=== PATIENT | male | born 1950 | race Caucasian/White ===

== ENCOUNTER 2018-05-23 08:03 | Outpatient (CLI) | payer OTHER, SELFPAY ==
[2018-05-23 08:29] LABS: Abs Immature Grans 0.02 k/cumm (0.0-0.09); Absolute Basophil Count 0.03 k/cumm (0.0-0.2); Absolute Eosinophil Count 0.64 k/cumm (0.0-0.7); Absolute Lymphocyte Count 2.03 k/cumm (1.2-3.4); Absolute Monocyte Count 0.76 k/cumm (0.11-0.7); Absolute Neutrophil Count 3.54 k/cumm (1.2-6.7); Basophils % 0.4; Eosinophils % 9.1; HCT 42.6 % (40.0-50.0); HGB 14.6 g/dL (13.5-17.5); Immature Grans % 0.3; Lymphocytes % 28.9; Mean Corp. HGB Concentration 34.3 g/dL (32.0-36.0); Mean Corpuscular Hemoglobin 32.7 pg (27.0-33.0); Mean Corpuscular Volume 95.5 fL (80-95); Mean Platelet Volume 9.5 fL (8.0-11.0); Monocytes % 10.8; Neutrophils % 50.5; Platelet Count 236 x1000/uL (130-400); RBC 4.46 m/cumm (4.50-6.00); RBC Distribution Width 12.5 % (11.8-14.1); White Blood Cell Count 7.02 k/cumm (4.4-10.8)
[2018-05-23 09:39] LABS: ALT 39 U/L (12-78); AST 23 U/L (15-37); Albumin 3.8 g/dL (3.4-5.0); Alkaline Phosphatase 111 U/L (46-116); Anion Gap 8.6 mmol/L (3-11); BUN 20 mg/dL (7-18); Bilirubin, Total 0.5 mg/dL (0.2-1.0); CO2 29.4 mmol/L (21.0-32.0); CREATININE 1.42 mg/dL (0.70-1.30); Calcium 9.2 mg/dL (8.5-10.1); Chloride 104 mmol/L (98-107); Estimated GFR 49.73 (mL/min/1.73m2); Glucose 96 mg/dL (70-100); Potassium 4.6 mmol/L (3.5-5.1); Sodium 142 mmol/L (136-145); Total Protein 7.2 g/dL (6.4-8.2)
== END 2018-05-23 08:23 ==
PROVIDERS: Surgery; PCP Nurse Practitioner; Visit Provider Nurse Practitioner
DX: N18.3 Chronic kidney disease, stage 3 (moderate) (principal); E03.9 Hypothyroidism, unspecified
CPT/HCPCS: 36415; 80048; 80053; 84443; 85025

== ENCOUNTER 2019-05-24 01:08 | Outpatient (CLI) | payer OTHER, SELFPAY ==
[2019-05-24 07:47] LABS: HCT 41.5 % (40.0-50.0); HGB 14.6 g/dL (13.5-17.5); Mean Corp. HGB Concentration 35.2 g/dL (32.0-36.0); Mean Corpuscular Hemoglobin 33.6 pg (27.0-33.0); Mean Corpuscular Volume 95.6 fL (80-95); Mean Platelet Volume 9.4 fL (8.0-11.0); Platelet Count 240 x1000/uL (130-400); RBC 4.34 m/cumm (4.50-6.00); RBC Distribution Width 12.3 % (11.8-14.1); White Blood Cell Count 5.71 k/cumm (4.4-10.8)
[2019-05-24 10:22] LABS: ALT 27 U/L (16-63); AST 22 U/L (15-37); Albumin 3.8 g/dL (3.4-5.0); Alkaline Phosphatase 91 U/L (46-116); Anion Gap 7.5 mmol/L (3-11); BUN 18 mg/dL (7-18); Bilirubin, Total 0.5 mg/dL (0.2-1.0); CO2 29.5 mmol/L (21.0-32.0); CREATININE 1.39 mg/dL (0.70-1.30); Calculated LDL 121 mg/dL; Chloride 105 mmol/L (98-107); Cholesterol 204 mg/dL (50-200); Estimated GFR 50.82 (mL/min/1.73m2); Glucose 101 mg/dL (70-100); HDL Cholesterol 40 mg/dL (40-60); Potassium 4.5 mmol/L (3.5-5.1); Sodium 142 mmol/L (136-145); TSH (W/Ref FT4) 0.58 uIU/mL (0.36-3.74); Total Protein 7.1 g/dL (6.4-8.2); Triglyceride 218 mg/dL (30-150)
== END 2019-05-24 01:28 ==
PROVIDERS: PCP Nurse Practitioner; Visit Provider Nurse Practitioner
DX: E03.9 Hypothyroidism, unspecified (principal); E78.5 Hyperlipidemia, unspecified; N18.3 Chronic kidney disease, stage 3 (moderate)
CPT/HCPCS: 36415; 80053; 80061; 85027; 84443

== ENCOUNTER 2020-05-28 03:00 | Outpatient (CLI) | payer OTHER, SELFPAY ==
[2020-05-28 07:30] LABS: HGB 14.9 g/dL (13.5-17.5); MCH 33.3 pg (27.0-33.0); MCHC 34.7 % (32.0-36.0); MCV 96.2 fL (80-95); MPV 9.3 fL (8.0-11.0); Platelet Count 223 10^3/uL (130-400); RBC 4.47 10^6/uL (4.36-5.78); RDW-SD 42.3 fL; WBC 7.59 10^3/uL (4.4-10.8)
[2020-05-28 08:51] LABS: ALT 25 U/L (16-63); AST 18 U/L (15-37); Albumin 3.9 g/dL (3.4-5.0); Alkaline Phosphatase 94 U/L (46-116); BUN 16 mg/dL (7-18); Bilirubin, Total 0.5 mg/dL (0.2-1.0); CREATININE 1.52 mg/dL (0.70-1.30); Calcium 9.2 mg/dL (8.5-10.1); Calculated LDL 132 mg/dL (<100); Chloride 104 mmol/L (98-107); Cholesterol 232 mg/dL (<200); Glucose 93 mg/dL (74-106); HDL Cholesterol 39 mg/dL (40-60); Potassium 4.5 mmol/L (3.5-5.1); Sodium 141 mmol/L (136-145); TSH (W/Ref FT4) 0.62 uIU/mL (0.36-3.74); Triglyceride 306 mg/dL (<150)
== END 2020-05-28 03:20 ==
PROVIDERS: Nurse Practitioner Family; PCP Nurse Practitioner; Visit Provider Nurse Practitioner
DX: E78.5 Hyperlipidemia, unspecified (principal); E03.9 Hypothyroidism, unspecified; N18.30 Chronic kidney disease, stage 3 unspecified
CPT/HCPCS: 36415; 80053; 80061; 85027; 84443

== ENCOUNTER 2020-07-30 14:46 | Outpatient (CLI) | payer OTHER, SELFPAY ==
--- NOTE | 2020-07-30 14:45 | DI.RAD_ITS ---
EXAM: XR SHOULDER RT COMPLETE 2+V CLINICAL HISTORY: Right shoulder pain. TECHNIQUE: 2D digital imaging was performed. COMPARISON: No exams were available for comparison FINDINGS: BONES: No acute fracture is present. No bony destructive lesion is seen. JOINTS: No dislocation present. Mild degenerative changes are seen at the acromioclavicular joint. SOFT TISSUE: Normal. IMPRESSION: Mild degenerative changes of the acromioclavicular joint. DATA REPOSITORY: RADIATION DOSE DELIVERED:
== END 2020-07-30 15:06 ==
PROVIDERS: PCP Nurse Practitioner; Referring Provider Nurse Practitioner; Visit Provider Student in an Organized Health Care Education/Training Program
DX: M19.011 Primary osteoarthritis, right shoulder (principal); M75.01 Adhesive capsulitis of right shoulder; M75.21 Bicipital tendinitis, right shoulder; M75.51 Bursitis of right shoulder
CPT/HCPCS: 20610; 99203; 99214; 73030; J1030

== ENCOUNTER → 2020-09-17 08:06 | Outpatient (BNVA) | payer OTHER, SELFPAY | PROVIDERS: PCP Nurse Practitioner; Referring Provider Nurse Practitioner; Visit Provider Student in an Organized Health Care Education/Training Program | DX: M25.511 Pain in right shoulder (principal); M75.51 Bursitis of right shoulder; M75.21 Bicipital tendinitis, right shoulder; M75.01 Adhesive capsulitis of right shoulder; Z98.890 Other specified postprocedural states | CPT/HCPCS: 99213; 99214 ==

== ENCOUNTER 2021-06-30 04:10 | Outpatient (CLI) | payer MEDICARE, SELFPAY ==
[2021-06-30 08:48] LABS: ALT 35 U/L (16-63); AST 18 U/L (15-37); Alkaline Phosphatase 98 U/L (46-116); Anion Gap 6.9 mmol/L (3-11); BUN 18 mg/dL (7-18); Bilirubin, Total 0.5 mg/dL (0.2-1.0); CO2 31.1 mmol/L (21.0-32.0); CREATININE 1.5 mg/dL (0.70-1.30); Calcium 9.1 mg/dL (8.5-10.1); Calculated LDL 138 mg/dL (<100); Chloride 105 mmol/L (98-107); Cholesterol 226 mg/dL (<200); Estimated GFR 46.27 (mL/min/1.73m2); Glucose 96 mg/dL (74-106); HDL Cholesterol 42 mg/dL (40-60); Potassium 4.7 mmol/L (3.5-5.1); Sodium 143 mmol/L (136-145); TSH (W/Ref FT4) 0.77 uIU/mL (0.36-3.74); Total Protein 7.2 g/dL (6.4-8.2); Triglyceride 233 mg/dL (<150)
== END 2021-06-30 04:11 | disposition home or self-care (01) ==
LOC: LBO 04:10
PROVIDERS: PCP Nurse Practitioner; Visit Provider Nurse Practitioner
DX: I10 Essential (primary) hypertension; E03.9 Hypothyroidism, unspecified; E78.5 Hyperlipidemia, unspecified; N18.30 Chronic kidney disease, stage 3 unspecified
CPT/HCPCS: 36415; 80053; 80061; 84443

== ENCOUNTER 2021-07-17 00:36 | Outpatient (CLI) | payer MEDICARE, SELFPAY ==
--- NOTE | 2021-07-17 06:15 | DI.US_ITS ---
Exam(s) US AAA SCREENING EXAM: US AAA SCREENING CLINICAL HISTORY: screening for aaa,z13.6 COMPARISON: CT ABD PELVIS WO CONTRAST from 08/30/2017 CT ABD PELVIS WO CONTRAST from 08/30/2017 US ABDOMEN ULTRASOUND (P) from 08/30/2017 US ABDOMEN ULTRASOUND (P) from 08/30/2017 FINDINGS: Abdominal Aorta: Proximal: 2.6 x 2.6 cm Mid: 2.5 x 2.2 cm Distal: 2.1 x 2.3 cm Iliac's: Right: 1.4 x 1.2 cm Left: 1.4 x 1.4 cm No significant atherosclerotic disease is seen. IMPRESSION: No evidence of abdominal aortic aneurysm. DATA REPOSITORY:
== END 2021-07-17 00:56 ==
PROVIDERS: PCP Nurse Practitioner; Visit Provider Nurse Practitioner
DX: Z13.6 Encounter for screening for cardiovascular disorders (principal)
CPT/HCPCS: 76706

== ENCOUNTER 2021-12-04 07:22 | Day surgery (SDC) | payer MEDICARE, SELFPAY ==
[2021-12-04 07:42] VITALS: BP 132/80; PULSE 62; RESP 16; TEMP 36.3; O2SAT 98
[2021-12-04] MEDS: Tropicam./Phenyleph. (1/2.5%) 5 ML BTL OS ×3 (07:51→08:01)
--- NOTE | 2021-12-04 08:39 | W.ANESPRE ---
General Info Date of Service Date Performed: 12/04/21 Height: 5 ft 8 in Weight: 81.8 kg Body Mass Index (BMI): 27.4 Surgical Procedure: Operation Date: 12/04/21 09:10 Proposed Procedure Side Surgeon p Cataract Extraction with IOL Implant Left Kyle Euceda MD Meds Allergies and Home Medications Allergies Allergy/AdvReac Type Severity Reaction Status Date / Time latex AdvReac Skin Rash Verified 12/04/21 07:48 Home Medication Medication Instructions Recorded multivitamin (Daily Vitamin) 1 ea PO DAILY 08/24/13 aspirin 81 mg tablet,delayed 81 mg PO DAILY #1 tab-cap 08/28/14 release (Aspir-) levothyroxine 112 mcg tablet 112 mcg PO DAILY #90 tab-cap 07/07/21 omega-3 fatty acids-fish oil 360 1 cap PO DAILY 11/23/21 mg-1,200 mg capsule (Fish Oil) Current Visit Medications: Current Medications Generic Name Dose Route Start Last Admin Trade Name Freq PRN Reason Stop Dose Admin Acetaminophen 1,000 mg 12/04/21 06:00 Acetaminophen 500 Mg Tab PO Q4H PRN PRN Miscellaneous Medication 0 ml 12/04/21 06:00 Prednisolone 1%, Moxifloxacin 0.5%, Nepafenac 0.1% 5ml Btl OS DIRECTED KEYA Miscellaneous Medication 0 ml 12/04/21 06:00 12/04/21 08:01 Tropicam./Phenyleph. (1/2.5%) 5 Ml Btl OS 1 drp DIRECTED KEYA Administration Tetracaine HCl 0 ml 12/04/21 06:00 Tetracaine 0.5% 4 Ml Btl OS DIRECTED KEYA PFSH Active Problems Active Problems: Problem Status Onset Code Cortical cataract of left eye H26.9 Nuclear sclerotic cataract of left eye H25.12 Bursitis of right shoulder M75.51 Tendonitis of long head of biceps brachii of right shoulder M75.21 Adhesive capsulitis of right shoulder M75.01 Family history of melanoma Z80.8 Family history of colon cancer Z80.0 Encounter for routine history and physical examination Z00.00 Right shoulder pain M25.511 Colonoscopy refused Z53.20 Routine general medical examination at a health care facility Z00.00 Posterior vitreous detachment 09/08/12 H43.819 Other and unspecified hyperlipidemia 08/17/11 E78.5 Kidney stone 08/17/11 N20.0 Hypothyroidism, unspecified 08/17/11 E03.9 Erectile dysfunction 09/03/15 N52.9 Dermatophytosis of nail 08/17/11 B35.1 Chronic kidney disease, stage 3 09/03/15 N18.3 Active advance directive within chart 08/17/11 Z78.9 Surgical History Surgical History Cholecystectomy (05/24/06) H/O colonoscopy (09/01/09) S/P appendectomy Tobacco Smoking/Tobacco Use Status: Never Passive smoking exposure: No Second hand exposure: No (father smoked pipes/cigars.) Alcohol Alcohol Intake: never Substance Use Substance use: Never Substance use type: does not use Vital Signs and Lab Results Vital Signs Most Recent Vital Signs in EMR: Most Recent Vital Signs Temp Pulse Resp BP Pulse Ox 36.3 C L 62 16 132/80 98 12/04/21 07:42 12/04/21 07:42 12/04/21 07:42 12/04/21 07:42 12/04/21 07:42 Lab Results Blood Type / Crossmatch: No Data to Display Complete Blood Count: No Data to Display Complete Metabolic Panel: No Data to Display Liver Function Panel: No Data to Display Coagulation Panel: No Data to Display Cardiac Panel: No Data to Display Arterial Blood Gas: No Data to Display Venous Blood Gas: No Data to Display Pancreas Panel: No Data to Display Thyroid Panel: No Data to Display Infectious Disease: No Data to Display Blood Cultures: No Data to Display Toxicology Panel: No Data to Display Anesthesia Assessment and Plan Anesthesia History Personal History: No History of Anesthesia Complications Family History: No Family History of Anesthesia Complications Exercise Tolerance Exercise Tolerance: Metabolic Equivalents>4 Pertinent Negatives Pertinent Negatives: No Symptoms of GERD Cardiac & Pulmonary Exam Cardiac Exam: Normal S1/S2 Heart Sounds Pulmonary Exam: Clear Bilateral Breath Sounds Implantable Cardiac Device Does patient have a Pacemaker or an ICD?: No Airway Exam Known Difficult Airway: No Mallampati Class: 3 Mouth Opening: Normal (> 3cm) Thyromental Distance: Greater than 3 cm Neck Range of Motion: Full ROM Neck Circumference: Normal Teeth Condition: Normal Dentition ASA Classification ASA Score: ASA 3 Emergency Case?: No NPO Status NPO Status: NPO Clears >2 hours, Solids >8 hours Anesthesia Plan Resuscitation Status: Full Code Anesthesia Technique: MAC Anesthesia Airway Planned: Natural Airway Monitors Used: Standard Monitors
[2021-12-04 08:40] VITALS: BMI 27.4
[2021-12-04] MEDS: Balanced Salt Soln.-PLUS 500 ML BAG (09:08)
[2021-12-04] MEDS: Duovisc Viscoelastic System EACH 1 EACH (09:09)
[2021-12-04] MEDS: Lidocaine 2% Jelly 6 ML SYR (09:10)
[2021-12-04] MEDS: Povidone-Iodine Ophth 30 ML BTL (09:10)
[2021-12-04] MEDS: Tetracaine 0.5% 4 ML BTL OS (09:12)
[2021-12-04] MEDS: Triamcinolone 40 MG/ML VIAL (09:19)
[2021-12-04 09:40] VITALS: BP 145/82; PULSE 60; RESP 18; TEMP 36.5; O2SAT 99
--- NOTE | 2021-12-04 09:40 | W.PM.DSUDISC ---
Discharge Plan Disposition Patient Disposition: HOME Condition: Good Discharge Details Attending Provider: Kyle Euceda Primary Care Provider: Nataliia Jimenez Home Meds and New Rx's Prescriptions: No Action levothyroxine 112 mcg tablet 112 mcg PO DAILY Qty: 90 3RF omega-3 fatty acids-fish oil [Fish Oil] 360-1,200 mg capsule 1 cap PO DAILY 0RF multivitamin [Daily Vitamin] 1 EACH tablet 1 ea PO DAILY 0RF aspirin [Aspir-81] 81 MG tablet,delayed release (DR/EC) 81 mg PO DAILY Qty: 1 11RF Discharge Instructions Stand Alone Forms: Post-op Topical Cataract, [place] (DSU) Discharge Orders Discharge Orders: Discharge Order (Routine); Ordered 12/04/21 Ordered By: Kyle Euceda DS: Diagnosis Discharge Diagnosis (1) Cortical cataract of left eye: Status: Resolved (2) Nuclear sclerotic cataract of left eye: Status: Resolved
--- NOTE | 2021-12-04 09:41 | ROE_ITS ---
Date of service: 12/04/21 Time of Service: 09:41 Operative Note Operative Note DATE OF PROCEDURE: 12/04/21 PRE-OP DIAGNOSIS: Nuclear/cortical cataract, left eye POST-OP DIAGNOSIS: same PROCEDURE: Cataract extraction using phacoemulsification with intraocular lens implant, left eye SURGEON: Kyle Euceda ANESTHESIA TYPE: Local By Surgeon and MAC Refer to Anesthesia Record PATHOLOGY: none sent COMPLICATIONS: None Patient was transported to: same day Patient's condition: stable Implants: Sanjeev and Sanjeev / [employer] Tecnis [id number] Indications: Progressive decreased vision due to cataract, left eye Procedure Description: CATARACT SURGERY OPERATIVE REPORT PREOPERATIVE DIAGNOSIS: 1. Nuclear/cortical cataract, POSTOPERATIVE DIAGNOSIS: Same OPERATION: 1. Cataract extraction using phacoemulsification with posterior chamber intraocular lens implant, left eye. IOL: IOL Bread Pan Greaser/Model: Sanjeev & Sanjeev / LEANDER Tecnis [id number] IOL Power: + 17 point diopters IOL Serial Number: [id number] Optic Diameter: 6.0 mm Haptic/Overall Diameter: 13.0 mm PHACO INFO: Juan [employer] Vision System with OZil and Active Fluidics Cumulative Dispersed Energy (CDE): 6.9 seconds SURGEON: Kyle Euceda MD, DOROTHEA ANESTHESIA: Monitored A [facility] (MAC), with local sub-tenon's anesthetic infiltration COMPLICATIONS: None SPECIMENS: None INDICATIONS FOR PROCEDURE: The patient is a 71-year-old gentleman with history of diminished visual acuity in his left eye secondary to the development of nuclear and cortical cataract. He is significantly symptomatic that he desires cataract surgery and attempt to improve and maximize his PROCEDURE: The correct surgical eye was identified and marked as the left eye and the pupil was dilated in the preoperative area using mydriatics and cyclople gics. The dilated pupil size was seven-point mm. He elected to proceed without oral sedationthe patient was brought to the operating room where cardiopulmonary monitoring was instituted and surgical time-out was performed, confirming the correct operative eye and IOL power. Topical anesthesia was administered and ophthalmic povidone-iodine 5% was instilled into the conjunctival fornices. Lidocaine gel was applied to the cornea and the niranjan-ocular area was prepped with Betadine 10% solution and draped in the usual sterile fashion for intraocular surgery, including an aperture drape. A Tegaderm transparent film dressing was cut in half and used to cover the lashes and lid margins. Care was taken to sequester the lashes and lid margins under the Tegaderm dressing. A lid speculum was placed between the lids of the operative eye and the Juan A [employer] operating microscope was maneuvered into position. Cora scissors were then used to make a conjunctival buttonhole approximately 6mm posterior to the limbus in the inferonasal quadrant. Blunt dissection was carried out to expose bare sclera, and a blunt-tipped sub-tenon?s anesthesia cannula was introduced and passed posteriorly along the globe where non- preserved plain lidocaine was injected into posterior sub-Tenon?s space. A sideport knife was used to make a paracentesis port superiorly/superiortemporally. Intraocular phenylephrine/lidocaine was injected int the anterior chamber.. The anterior chamber was filled with viscoelastic. A 2.4mm keratome knife was used to create a half-thickness groove at the limbus and then to construct a three-plane near-clear corneal tunnel extending 2.0mm into clear cornea at the 3:00 position. A flap was raised on the anterior capsule and capsulorhexis forceps were used to complete a continuous curvilinear capsulorhexis of 5.0 mm. The capsule was noted to be quite thin. Balanced salt solution was then used to perform cortical cleaving hydrodissection and nuclear hydrodelineation until the lens could be freely rotated within the capsular bag. The lens nucleus was then disassembled and removed within the capsular bag and iris plane using phacoemulsification. The anterior chamber was noted to be quite deep. Residual cortical material was removed using the 45-degree angled silicone I/A tip with 0.3mm port. The posterior capsule was carefully polished to remove as much residual lens epithelial cells as safely possible. The capsular bag was then inflated and the anterior chamber deepened with viscoelastic. The lens implant described above was inserted into the capsular bag using the LEANDER [place] Injector. A Kuglen hook was used to dial the IOL into position. Residual viscoelastic was then removed first from posterior to the IOL, then from the anterior chamber using the I/A handpiece. The lens implant was noted to center nicely within the capsular bag. The incisions were stromally hydrated, and the anterior chamber was reformed using BSS. Then 0.5cc of moxifloxacin 1.0mg/ml were injected into the capsular bag and anterior chamber. The incisions were checked with a Weck spear and found to be secure. At the conclusion of the procedure, Kenalog 20 mg in 0.5 cc were injected into posterior sub-tenon's space using the sub-tenon's anesthesia injection cannula. Several drops of ophthalmic povidone-iodine 5% were then applied to the eye followed by two drops of Imprimis combination prednisolone/moxifloxacin/nepafenac solution. The drapes were removed and a clear plastic protective eye shield was placed over the eye. The patient was then returned to Same Day Surgery in stable condition.
--- NOTE | 2021-12-04 10:00 | W.ANESPOSTOP ---
Postoperative Evaluation Date, Time and Location Date Performed: 12/04/21 Time Performed: 09:45 Patient Location: Day Surgery Unit Vital Signs Most Recent Imported Vital Signs: Most Recent Vital Signs Temp Pulse Resp BP Pulse Ox 36.5 C 60 18 145/82 H 99 12/04/21 09:40 12/04/21 09:40 12/04/21 09:40 12/04/21 09:40 12/04/21 09:40 Pain Score Most Recent Pain Score: Most Recent Pain Score Pain Level 0 12/04/21 09:40 Assessment Mental Status: Awake (Alert & Oriented to Patient Baseline) Airway and Respiratory Function: Patent airway with normal (patient baseline) respiratory exam Cardiovascular Function: Hemodynamically Stable Hydration Status: Adequately Hydrated Nausea & Vomiting: No Nausea or Vomiting Pain: Pt. Denies Any Pain Peripheral Nerve Block: Patient did not receive a nerve block
== END 2021-12-04 10:03 | disposition home or self-care (01) ==
PROVIDERS: PCP Nurse Practitioner; Visit Provider Ophthalmology
PROC: (CPT 66984; principal; 2021-12-04 09:00)
DX: H25.12 Age-related nuclear cataract, left eye (principal); E03.9 Hypothyroidism, unspecified; N18.30 Chronic kidney disease, stage 3 unspecified
CPT/HCPCS: 66984; V2632

== ENCOUNTER 2021-12-18 06:24 | Day surgery (SDC) | payer MEDICARE, SELFPAY ==
--- NOTE | 2021-12-18 06:14 | ANES.PREOP_ITS ---
General Info Date of Service Date Performed: 12/18/21 Height: 5 ft 8 in Weight: 80 kg Body Mass Index (BMI): 26.8 Surgical Procedure: Operation Date: 12/18/21 07:40 Proposed Procedure Side Surgeon p Cataract Extraction with IOL Implant Right Kyle Euceda MD Meds Allergies and Home Medications Allergies Allergy/AdvReac Type Severity Reaction Status Date / Time latex AdvReac Skin Rash Verified 12/18/21 06:16 Home Medication Medication Instructions Recorded multivitamin (Daily Vitamin tablet) 1 ea PO DAILY 08/24/13 aspirin 81 mg tablet,delayed 81 mg PO DAILY #1 tab-cap 08/28/14 release (Aspir-) levothyroxine 112 mcg tablet 112 mcg PO DAILY #90 tab-caps 07/07/21 omega-3 fatty acids-fish oil 360 1 cap PO DAILY 11/23/21 mg-1,200 mg capsule (Fish Oil) PFSH Active Problems Active Problems: Problem Status Onset Code Cortical cataract of left eye H26.9 Nuclear sclerotic cataract of left eye H25.12 Bursitis of right shoulder M75.51 Tendonitis of long head of biceps brachii of right shoulder M75.21 Adhesive capsulitis of right shoulder M75.01 Family history of melanoma Z80.8 Family history of colon cancer Z80.0 Encounter for routine history and physical examination Z00.00 Right shoulder pain M25.511 Colonoscopy refused Z53.20 Routine general medical examination at a health care facility Z00.00 Posterior vitreous detachment 09/08/12 H43.819 Other and unspecified hyperlipidemia 08/17/11 E78.5 Kidney stone 08/17/11 N20.0 Hypothyroidism, unspecified 08/17/11 E03.9 Erectile dysfunction 09/03/15 N52.9 Dermatophytosis of nail 08/17/11 B35.1 Chronic kidney disease, stage 3 09/03/15 N18.3 Active advance directive within chart 08/17/11 Z78.9 Surgical History Surgical History Cholecystectomy (05/24/06) H/O colonoscopy (09/01/09) S/P appendectomy Tobacco Smoking/Tobacco Use Status: Never Passive smoking exposure: No Second hand exposure: No (father smoked pipes/cigars.) Alcohol Alcohol Intake: never Substance Use Substance use: Never Substance use type: does not use Vital Signs and Lab Results Vital Signs Most Recent Vital Signs in EMR: Temp Pulse Resp BP Pulse Ox 36.3 C L 50 L 18 127/75 99 12/18/21 06:30 12/18/21 06:30 12/18/21 06:30 12/18/21 06:30 12/18/21 06:30 Lab Results Blood Type / Crossmatch: No Data to Display Complete Blood Count: No Data to Display Complete Metabolic Panel: No Data to Display Liver Function Panel: No Data to Display Coagulation Panel: No Data to Display Cardiac Panel: No Data to Display Arterial Blood Gas: No Data to Display Venous Blood Gas: No Data to Display Pancreas Panel: No Data to Display Thyroid Panel: No Data to Display Infectious Disease: No Data to Display Blood Cultures: No Data to Display Toxicology Panel: 2 No Data to Display Anesthesia Assessment and Plan Anesthesia History Personal History: No History of Anesthesia Complications Family History: No Family History of Anesthesia Complications Exercise Tolerance Exercise Tolerance: Metabolic Equivalents>4 Cardiac & Pulmonary Exam Cardiac Exam: Normal S1/S2 Heart Sounds Pulmonary Exam: Clear Bilateral Breath Sounds Implantable Cardiac Device Does patient have a Pacemaker or an ICD?: No Airway Exam Known Difficult Airway: No Mallampati Class: 3 Mouth Opening: Normal (> 3cm) Thyromental Distance: Greater than 3 cm Neck Range of Motion: Full ROM Neck Circumference: Normal Teeth Condition: Normal Dentition ASA Classification ASA Score: ASA 3 Emergency Case?: No NPO Status NPO Status: NPO Clears >2 hours, Solids >8 hours Anesthesia Plan Resuscitation Status: Full Code Anesthesia Technique: MAC Anesthesia Airway Planned: Natural Airway Monitors Used: Standard Monitors Preoperative Comments:: 71 yo male for cataract removal. Sig PMHx: hypothyroid (on replacement), CKDIII, never smoker. Previous cataract without MKO. would like one this time. Denies health history change.
[2021-12-18 06:30] VITALS: BP 127/75; PULSE 50; RESP 18; TEMP 36.3; O2SAT 99
[2021-12-18] MEDS: Tropicam./Phenyleph. (1/2.5%) 5 ML BTL ×3 (06:37→06:47)
[2021-12-18 06:57] VITALS: BMI 26.8
[2021-12-18] MEDS: Lidocaine 2% Jelly 6 ML SYR (07:23)
[2021-12-18] MEDS: Povidone-Iodine Ophth 30 ML BTL (07:23)
[2021-12-18] MEDS: Tetracaine 0.5% 4 ML BTL (07:23)
[2021-12-18] MEDS: Triamcinolone 40 MG/ML VIAL (07:33)
[2021-12-18] MEDS: Balanced Salt Soln.-PLUS 500 ML BAG (07:33)
[2021-12-18] MEDS: Duovisc Viscoelastic System EACH 1 EACH (07:34)
--- NOTE | 2021-12-18 07:49 | W.PM.DSUDISC ---
Discharge Plan Disposition Patient Disposition: HOME Condition: Good Discharge Details Attending Provider: Kyle Euceda Primary Care Provider: Nataliia Jimenez Home Meds and New Rx's Prescriptions: No Action levothyroxine 112 mcg tablet 112 mcg PO DAILY Qty: 90 3RF omega-3 fatty acids-fish oil [Fish Oil] 360-1,200 mg capsule 1 cap PO DAILY multivitamin [Daily Vitamin] 1 EACH tablet 1 ea PO DAILY aspirin [Aspir-81] 81 MG tablet,delayed release (DR/EC) 81 mg PO DAILY Qty: 1 Discharge Instructions Stand Alone Forms: Post-op Topical Cataract, [place] (DSU) Discharge Orders Discharge Orders: Discharge Order (Routine); Ordered 12/18/21 Ordered By: Kyle Euceda DS: Diagnosis Discharge Diagnosis (1) Cortical cataract of right eye: Status: Resolved (2) Nuclear sclerotic cataract of right eye: Status: Resolved (3) Puckering of macula, right eye: Status: Chronic
--- NOTE | 2021-12-18 07:51 | W.PM.OP ---
Date of service: 12/18/21 Time of Service: 06:51 Operative Note Operative Note DATE OF PROCEDURE: 02/23/21 PRE-OP DIAGNOSIS: Nuclear/cortical cataract, right eye POST-OP DIAGNOSIS: same PROCEDURE: Cataract extraction using phacoemulsification with intraocular lens implant, right eye SURGEON: Kyle Euceda ANESTHESIA TYPE: Local By Surgeon and MAC Refer to Anesthesia Record ESTIMATED BLOOD LOSS: 0 PATHOLOGY: none sent COMPLICATIONS: None Patient was transported to: same day Patient's condition: stable Implants: Sanjeev & Sanjeev/LEANDER Tecnis [id number] Indications: Progressive visual loss due to cataract, right eye Procedure Description: CATARACT SURGERY OPERATIVE REPORT PREOPERATIVE DIAGNOSIS: 1. Nuclear/cortical cataract, right eye POSTOPERATIVE DIAGNOSIS: Same OPERATION: 1. Cataract extraction using phacoemulsification with posterior chamber intraocular lens implant, right eye. IOL: IOL Transport Rn/Model: Sanjeev & Sanjeev / LEANDER Tecnis [id number] IOL Power: + 17.5 diopters IOL Serial Number: [id number] Optic Diameter: 6.0mm Haptic/Overall Diameter: 13.0mm PHACO INFO: Juan [employer] [place] Vision System with OZil and Active Fluidics Cumulative Dispersed Energy (CDE): 5.98 seconds SURGEON: Kyle Euceda MD, DOROTHEA ANESTHESIA: Monitored Anesthesia Care (MAC), with local sub-tenon's anesthetic infiltration COMPLICATIONS: None SPECIMENS: None INDICATIONS FOR PROCEDURE: The patient is a 71-year-old gentleman with history of diminished visual acuity in both eyes secondary to development of bilateral nuclear/cortical cataract. He has already undergone cataract surgery in the left eye. He now presents for cataract surgery in the right eye. He has a history of bilateral epiretinal membranes as well. The option of cataract surgery was offered to the patient and he wished to proceed. PROCEDURE: The correct surgical eye was identified and marked as the right eye and the pupil was dilated in the preoperative area using mydriatics and cycloplegics. The dilated pupil size was 7.0 mm. Oral sedation was administered in the form of an Imprimis MKO Melt (midazolam 3mg/ketamine 25mg/ondansetron 2mg). The patient was brought to the operating room where cardiopulmonary monitoring was instituted and surgical time-out was performed, confirming the correct operative eye and IOL power. Topical anesthesia was administered and ophthalmic povidone-iodine 5% was instilled into the conjunctival fornices. Lidocaine gel was applied to the cornea and the niranjan-ocular area was prepped with Betadine 10% solution and draped in the usual sterile fashion for intraocular surgery, including an aperture drape. A Tegaderm transparent film dressing was cut in half and used to cover the lashes and lid margins. Care was taken to sequester the lashes and lid margins under the Tegaderm dressing. A lid speculum was placed between the lids of the operative eye and the Juan A [employer] operating microscope was maneuvered into position. Cora scissors were then used to make a conjunctival buttonhole approximately 6mm posterior to the limbus in the inferonasal quadrant. Blunt dissection was carried out to expose bare sclera, and a blunt-tipped sub-tenon?s anesthesia cannula was introduced and passed posteriorly along the globe where non-preserved plain lidocaine was injected into posterior sub-Tenon?s space. A sideport knife was used to make a paracentesis port inferotemporally. Intraocular phenylephrine/lidocaine was injected into the anterior chamber. The anterior chamber was filled with viscoelastic. A 2.4mm keratome knife was used to construct a 2-plane near-clear corneal tunnel extending 2.0mm into clear cornea superiortemporally. A flap was raised on the anterior capsule and capsulorhexis forceps were used to complete a continuous curvilinear capsulorhexis of 5.0 mm. Balanced salt solution was then used to perform cortical cleaving hydrodissection and nuclear hydrodelineation until the lens could be freely rotated within the capsular bag. The lens nucleus was then disassembled and removed within the capsular bag and iris plane using phacoemulsification. Residual cortical material was removed using the I/A handpiece. The posterior capsule was carefully polished to remove as much residual lens epithelial cells as safely possible. The capsular bag was then inflated and the anterior chamber deepened with viscoelastic. The lens implant described above was inserted into the capsular bag using the LEANDER [place] Injector. A Kuglen hook was used to dial the IOL into position. Residual viscoelastic was then removed first from posterior to the IOL, then from the anterior chamber using the I/A handpiece. The lens implant was noted to center nicely within the capsular bag. The incisions were stromally hydrated, and the anterior chamber was reformed using BSS. Then 0.5cc of moxifloxacin 1.0mg/ml were injected into the capsular bag and anterior chamber. The incisions were checked with a Weck spear and found to be secure. At the conclusion of the procedure, Kenalog 20 mg in 0.5 cc were injected into posterior sub-tenon's space using the sub-tenon's anesthesia injection cannula. Several drops of ophthalmic povidone-iodine 5% were then applied to the eye followed by two drops of Imprimis combination prednisolone/moxifloxacin/nepafenac solution. The drapes were removed and a clear plastic protective eye shield was placed over the eye. The patient was then returned to Same Day Surgery in stable condition.
[2021-12-18 07:55] VITALS: BP 114/66; PULSE 56; RESP 16; TEMP 36.7; O2SAT 97
--- NOTE | 2021-12-18 08:01 | W.ANESPOSTOP ---
Postoperative Evaluation Date, Time and Location Date Performed: 12/18/21 Time Performed: 07:02 Patient Location: Day Surgery Unit Vital Signs Most Recent Imported Vital Signs: Most Recent Vital Signs Temp Pulse Resp BP Pulse Ox 36.7 C 56 L 16 114/66 97 12/18/21 07:55 12/18/21 07:55 12/18/21 07:55 12/18/21 07:55 12/18/21 07:55 Pain Score Most Recent Pain Score: Most Recent Pain Score Pain Level 0 12/18/21 07:55 Assessment Mental Status: Awake (Alert & Oriented to Patient Baseline) Airway and Respiratory Function: Patent airway with normal (patient baseline) respiratory exam Cardiovascular Function: Hemodynamically Stable Hydration Status: Adequately Hydrated Nausea & Vomiting: No Nausea or Vomiting Pain: Pt. Denies Any Pain Peripheral Nerve Block: Patient did not receive a nerve block
[2021-12-18 08:15] VITALS: BP 121/77; PULSE 56; RESP 16; TEMP 37; O2SAT 96
== END 2021-12-18 08:18 | disposition home or self-care (01) ==
PROVIDERS: PCP Nurse Practitioner; Visit Provider Ophthalmology
PROC: (CPT 66984; principal; 2021-12-18 07:30)
DX: H25.11 Age-related nuclear cataract, right eye (principal); H35.371 Puckering of macula, right eye; E03.9 Hypothyroidism, unspecified
CPT/HCPCS: 66984; V2632

== ENCOUNTER 2022-07-05 02:54 | Outpatient (CLI) | payer MEDICARE, SELFPAY ==
[2022-07-05 07:32] LABS: HCT 41.7 % (40.0-50.0); HGB 14.5 g/dL (13.5-17.5); MCHC 34.8 % (32.0-36.0); MCV 95 fL (80-95); MPV 9.3 fL (8.0-11.0); Platelet Count 242 10^3/uL (130-400); RBC 4.39 10^6/uL (4.36-5.78); RDW 12.1 % (11.8-14.1); RDW-SD 42.3 fL; WBC 7.67 10^3/uL (4.4-10.8)
[2022-07-05 07:56] LABS: ALT 28 U/L (16-63); AST 18 U/L (15-37); Albumin 3.8 g/dL (3.4-5.0); Alkaline Phosphatase 110 U/L (46-116); Anion Gap 5.4 mmol/L (3-11); BUN 22 mg/dL (7-18); Bilirubin, Total 0.4 mg/dL (0.2-1.0); CO2 30.6 mmol/L (21.0-32.0); CREATININE 1.5 mg/dL (0.70-1.30); Calcium 9.3 mg/dL (8.5-10.1); Calculated LDL 109 mg/dL (<100); Chloride 103 mmol/L (98-107); Cholesterol 200 mg/dL (<200); Estimated GFR 49.47 (mL/min/1.73m2); Glucose 99 mg/dL (74-106); HDL Cholesterol 44 mg/dL (40-60); Potassium 4.3 mmol/L (3.5-5.1); Sodium 139 mmol/L (136-145); TSH (W/Ref FT4) 0.22 uIU/mL (0.36-3.74); Total Protein 7.6 g/dL (6.4-8.2); Triglyceride 236 mg/dL (<150)
[2022-07-05 08:13] LABS: FREE T4 1.07 ng/dL (0.76-1.46)
== END 2022-07-05 02:55 | disposition home or self-care (01) ==
LOC: LBO 02:54
PROVIDERS: PCP Nurse Practitioner; Referring Provider Nurse Practitioner; Visit Provider Nurse Practitioner
DX: I10 Essential (primary) hypertension (principal); E78.5 Hyperlipidemia, unspecified; E03.9 Hypothyroidism, unspecified
CPT/HCPCS: 36415; 80053; 80061; 85027; 84439; 84443

== ENCOUNTER 2023-07-06 09:56 | Outpatient (CLI) | payer MEDICARE, SELFPAY ==
[2023-07-06 08:38] LABS: ALT 32 U/L (16-63); AST 17 U/L (15-37); Albumin 3.7 g/dL (3.4-5.0); Alkaline Phosphatase 92 U/L (46-116); Anion Gap 6.8 mmol/L (3-11); BUN 24 mg/dL (7-18); Bilirubin, Total 0.5 mg/dL (0.2-1.0); CO2 30.2 mmol/L (21.0-32.0); CREATININE 1.5 mg/dL (0.70-1.30); Calcium 9.4 mg/dL (8.5-10.1); Calculated LDL 123 mg/dL (<100); Chloride 105 mmol/L (98-107); Cholesterol 219 mg/dL (<200); Estimated GFR 49.16 (mL/min/1.73m2); Glucose 98 mg/dL (74-106); HDL Cholesterol 46 mg/dL (40-60); Potassium 4.4 mmol/L (3.5-5.1); Sodium 142 mmol/L (136-145); Total Protein 7.5 g/dL (6.4-8.2); Triglyceride 252 mg/dL (<150)
[2023-07-06 08:55] LABS: FREE T4 0.88 ng/dL (0.76-1.46)
[2023-07-06 18:44] LABS: PSA, Screening 0.7 ng/mL (<=6.5)
== END 2023-07-06 09:57 | disposition home or self-care (01) ==
LOC: LBO 09:57
PROVIDERS: Family Medicine; PCP Nurse Practitioner; Visit Provider Nurse Practitioner
DX: Z12.5 Encounter for screening for malignant neoplasm of prostate (principal); E03.9 Hypothyroidism, unspecified; E78.5 Hyperlipidemia, unspecified; N18.30 Chronic kidney disease, stage 3 unspecified
CPT/HCPCS: 36415; 80053; 80061; 84153; 84439; 84443

== ENCOUNTER → 2023-11-23 02:46 | Outpatient (CLI) | payer MEDICARE, SELFPAY ==
--- NOTE | 2023-11-23 10:00 | DI.RAD_ITS ---
Exam(s) XR THUMB RT EXAM: XR THUMB RT CLINICAL HISTORY: ? avulsion Fx, UCL injury,rt thumb pain,m79.644,sprain,s63.641a,numbness rt. TECHNIQUE: 2D digital imaging was performed. Three views. COMPARISON: No exams were available for comparison FINDINGS: BONES: No acute fracture is present. No bony destructive lesion is seen. JOINTS: No dislocation or subluxation present. Joint spaces are maintained. SOFT TISSUE: Normal. IMPRESSION: No evidence of acute fracture, dislocation, or subluxation. DATA REPOSITORY: RADIATION DOSE DELIVERED:
== END ==
PROVIDERS: PCP Nurse Practitioner; Visit Provider Student in an Organized Health Care Education/Training Program
DX: M79.644 Pain in right finger(s) (principal); M25.531 Pain in right wrist; R20.0 Anesthesia of skin; R20.2 Paresthesia of skin
CPT/HCPCS: 73140

== ENCOUNTER → 2023-11-24 08:40 | Outpatient (BNVA) | payer MEDICARE, SELFPAY | PROVIDERS: PCP Nurse Practitioner; Referring Provider Nurse Practitioner; Visit Provider Student in an Organized Health Care Education/Training Program | DX: M77.8 Other enthesopathies, not elsewhere classified (principal); G56.01 Carpal tunnel syndrome, right upper limb | CPT/HCPCS: 99202 ==

== ENCOUNTER 2024-08-14 03:25 | Outpatient (CLI) | payer MEDICARE, SELFPAY ==
[2024-08-14 07:41] LABS: ALT 26 U/L (16-63); AST 15 U/L (15-37); Albumin 3.9 g/dL (3.4-5.0); Alkaline Phosphatase 97 U/L (46-116); Anion Gap 7.7 mmol/L (3-11); BUN 22 mg/dL (7-18); CO2 29.3 mmol/L (21.0-32.0); CREATININE 1.8 mg/dL (0.70-1.30); Calculated LDL 136 mg/dL (<100); Chloride 107 mmol/L (98-107); Cholesterol 226 mg/dL (<200); Estimated GFR 39.25 (mL/min/1.73m2); Glucose 104 mg/dL (74-106); HDL Cholesterol 48 mg/dL (40-60); Potassium 4.4 mmol/L (3.5-5.1); Sodium 144 mmol/L (136-145); TSH (W/Ref FT4) 1.63 uIU/mL (0.36-3.74); Total Protein 7.5 g/dL (6.4-8.2); Triglyceride 214 mg/dL (<150)
== END 2024-08-14 03:26 | disposition home or self-care (01) ==
PROVIDERS: PCP Nurse Practitioner; Referring Provider Nurse Practitioner; Visit Provider Nurse Practitioner
DX: E78.5 Hyperlipidemia, unspecified (principal); E03.9 Hypothyroidism, unspecified
CPT/HCPCS: 36415; 80053; 80061; 84443

== ENCOUNTER 2024-09-11 01:07 | Outpatient (CLI) | payer MEDICARE, SELFPAY ==
--- OUTSIDE RECORDS SUMMARY | 2024-09-11 01:20 | XMS_ITS | Encounter Summary ---
Author Organization Formerly [facility] [place] [address] Care Team Providers Care Analysis Engineer Name Role Phone Andrew Sims MD Primary Care Provider U antoine Reason for Visit * Reason Onset Date Comments Results 01/07/2012 Encounter Details Date Type Department Care Team (Late st Contact Info) Description 01/07/2012 Telephone [place] [id number] Efren Stanton MD Results Social History Tobacco Use Types Packs/Day Years Used Date Smoking Tobacco: Former Cigarettes 0.5 3 0 11/22/1969 - 11/22/1972 Smokeless Tobacco: Never Alcohol Use Standard Drinks/Week Comments No 0 (1 standard drink = 0.6 oz pur e alcohol) very rare Sex and Gender Information Value Date Recorded Sex Assigned at Not on file Gender Identity Not on file Sexual Orientation Not on file documented as of this encounter Miscellaneous Notes * Telephone Encounter - Efren Stanton MD - 01/07/2012 3:33 PM EDT I called the patient to review the results of recent 24 hour urine from [facility] (collected 12/22/11). I also reviewed the interim history since I had last seen him. He says he feels much better since the procedure performed by Dr. Mcgill. The analysis of stone removed was calcium oxalate. Urine results (to be scanned into eDH) show volume 2.9 liter (much improved). Urine pH was 6.64 and oxalate 42mg. The latter two are increased from the previous collections. We identified nuts as possibly contributing to the increase in oxalate. I asked him to reduce intake of oxalate containing foods, whichwe reviewed. I asked him to continue with high water/fluid intake. documented in this encounter Plan of Treatment Not on file documented as of this encounter Visit Diagnoses Not on filedocumented in this encounter Care Teams Analysis Engineer Relationship Specialty Start Date End Date Andrew Sims MD PCP - General 06/30/10 05/17/17 documented as of this encounter
--- OUTSIDE RECORDS SUMMARY | 2024-09-11 01:20 | XMS_ITS | Encounter Summary ---
Author Organization [facility] Address [address] [place] [address] Care Team Providers Care Telecommunications Specialist Name Role Phone Unknown, Provider Primary Care Provider Unava ilable Encounter Details Date Type Department Care Team (Late st Contact Info) Description 08/31/2017 Results Only [facility] [phone] Murphy Rosales, DO [address] [place] [address] Social History Tobacco Use Types Packs/Day Years Used Date Smoking Tobacco: Never Assessed Sex and Gender Information Value Date Recorded Sex Assigned at Not on file Legal Sex Male 20:52 EST Gender Identity Not on file Sexual Orientation Not on file documented as of this encounter Plan of Treatment Not on file documented as of this encounter Procedures Procedure Name Priority Date/Time Associated Diagnosis Comments SURGICAL PATHOLOGY Routine 08/31/2017 20 :54 EST documented in this encounter Results * SURGICAL PATHOLOGY (08/31/2017 20:54 EST) Pathology Report: SURGICAL PATHOLOGY REPORT Reports generated via electronic interface contain original data; however they are lacking the format of the original report. Caution should be taken when reading/interpret ing unformatted reports. Name: ? JENARO FLORES ? Accession #: ? [id number] ? : ? 1950 (Age: 67) ??M ? Collect Date: ? 08/31/2017 ? Location: ? [facility] ? Receive Date: ? 08/31/2017 ? Provider: MURPHY ROSALES DO Copy to: [employer] ? Final Pathologic Diagnosis: GALLBLADDER, CHOLECYSTECTOMY: - ??Acute cholecystitis. - ??Cholelithiasis. Document reviewed and electronically signed by: CYRUS CELIS MD Report ??Date: 09/02/2017 14:31 By the signature above, the attending physician certifies that he/she has personally conducted a gross and/or microscopic examination of the described specimens and rendered or confirmed the above diagnosis. Specimen(s) Received: Gallbladder Clinical History: Acute cholecystitis Gross Description: ? Received in formalin labelled with proper patient identification (initials L, D) and gallbladder is a previously disrupted gallbladder (7.5 x 3.4 x 0.6 cm). The cystic duct margin is inked black. ? The mucosa is dasilva-purple, hemorrhagic, and ragged, with a laceration at the cystic duct lumen exposing the underlying mucosa. The mucosa is purple-brown and ragged, with the wall thickness ranging from 0.2-0.5 cm. Within the container is a single green ovoid granular gallstone (1.3 x 1.2 cm). The cystic duct margin, en face, and two cross sections are submitted in 1. LEEANNA Langley (ASCP) 09/01/2017 8:16 AM End of Report [facility] 08/31/2017 20:5 4 EST 08/31/2017 20:54 EST us Murphy Rosales DO PATHOLOGY ORDERABLES Final Res ult [facility] [address] [place] [address] documented in this encounter Visit Diagnoses Not on filedocumented in this encounter Care Teams Telecommunications Specialist Relationship Specialty Start Date End Date Unknown, Provider, PCP - General 08/31/17 documented as of this encounter
--- OUTSIDE RECORDS SUMMARY | 2024-09-11 01:20 | XMS_ITS | Clinical Summary ---
Author Organization [facility] Address [facility] [place] [address] Care Team Providers Care Esl Professor Name Role Phone Unknown Primary Care Provider Unavailabl e Allergies No known active allergies Medications Medication Sig Dispensed Refills Start Date End Date Status levothyroxine (SYNTHROID) 100 mcg tabletIndications:CKD (chronic kidney disease) Take 100 mcg by mouth daily. Active multivitamin (THERAGRAN) tabletIndications:CKD (chronic kidney disease) Take 1 tablet by mouth daily. Active OXYcodone-acetaminoph en (PERCOCET) 5-325 mg per tablet Take 1 tablet by mouth every 4 hours as needed for Pain. 30 tablet 0 12/03/2011 Active Active Problems Problem Noted Date Diagnosed Date Bladder stone 11/23/2011 Nephrolithiasis 11/17/2011 Social History Tobacco Use Types Packs/Day Years Used Date Smoking Tobacco: Former Cigarettes 0.5 3 0 11/22/1969 - 11/22/1972 Smokeless Tobacco: Never Alcohol Use Standard Drinks/Week Comments No 0 (1 standard drink = 0.6 oz pur e alcohol) very rare Sex and Gender Information Value Date Recorded Sex Assigned at Not on file Gender Identity Not on file Sexual Orientation Not on file Last Filed Vital Signs Vital Sign Reading Time Taken Comments Blood Pressure 135/74 01/04/2012 3:58 PM EDT Pulse 58 01/04/2012 3:58 PM EDT Temperature 36.5 ??C (97.7 ??F) 12/03/2011 1:54 PM ED T Respiratory Rate 16 01/04/2012 3:58 PM EDT Oxygen Saturation 98% 12/03/2011 2:25 PM EDT Inhaled Oxygen Concentration - - Weight 79.8 kg (176 lb) 01/04/2012 3:58 PM EDT Height 172.7 cm (5' 8) 01/04/2012 3:58 PM EDT Body Mass Index 26.76 01/04/2012 3:58 PM EDT Plan of Treatment Health Maintenance Due Date Last Done Comments CT Colonography 1950 Colonoscopy 1950 Colorectal Cancer Screening 1950 FIT DNA 1950 FIT 1950 Sigmoidoscopy (10 year) with FIT yearly 1950 Sigmoidoscopy 1950 Hepatitis C Screening 1969 Lipid Screening 1969 Tetanus/Diphtheria/Pertussis Vaccines (1 - Tdap) 01/09 Pneumoccocal Vaccine: 50+ (1 of 1 - PCV) 2001 Zoster vaccine (1 of 2) 2001 Advance Directive 2006 Covid-19 Vaccine (1 - 2023-25 season) 2024 Influenza (Flu) vaccine (1 o f 1 - Influenza standard series) 04/08/2024 Care Teams Esl Professor Relationship Specialty Start Date End Date Unknown None PCP - General 05/18/17
--- OUTSIDE RECORDS SUMMARY | 2024-09-11 01:20 | XMS_ITS | Encounter Summary ---
Author Organization [facility] Address [facility] [place] [address] Care Team Providers Care Manager Of Revenue Name Role Phone Andrew Sims MD Primary Care Provider U frankyailable Reason for Visit * Reason Comments Nephrolithiasis Encounter Details Date Type Department Care Team (Latest Contact Info) Description 11/17/2011 10:30 AM EDT Office [place] [address] Xander Mcgill Jr., MD [facility] [place] [address] Nephrolithiasis (Primary Dx) Discharge Disposition: Home Social History Tobacco Use Types Packs/Day Years Used Date Smoking Tobacco: Former Sex and Gender Information Value Date Recorded Sex Assigned at Not on file Gender Identity Not on file Sexual Orientation Not on file documented as of this encounter Last Filed Vital Signs Vital Sign Reading Time Taken Comments Blood Pressure 140/84 11/17/2011 9:41 AM EDT Pulse 69 11/17/2011 9:41 AM EDT Temperature - - Respiratory Rate 18 11/17/2011 9:41 AM EDT Oxygen Saturation - - Inhaled Oxygen Concentration - - Weight 79.8 kg (176 lb) 11/17/2011 9:41 AM EDT Height 172.7 cm (5' 8) 11/17/2011 9:41 AM EDT Body Mass Index 26.76 11/17/2011 9:41 AM EDT documented in this encounter Progress Notes * Xander Mcgill Jr., MD - 11/17/2011 9:54 AM EDT Subjective: Patient ID: Jenaro Flores is a 61 y.o. male. HPI Mr Flores is a 61 yo gentleman who presents for consult regarding urolithiasis. He had his first episode in 2006. CT reportedly showed right hydronephrosis with perinephric and periureteral stranding; a 3mm calculus was seen in the right hemipelvis which most likely lies the distal right ureter. He was able to pass and retrieve the stone and took it to [facility]. He is not aware if a stone analysis was done. He was well until 05/18, when he again had an episode of severe pain. He did not go to the ED; the pain lasted about 2-3 hours before subsiding. In 06/18, again he had pain that lasted a whole afternoon. In 07/18, he experienced another episode of pain for which he took pain medication and felt better in 3-4 hours. He does not think he passed a stone on each of these three episodes. He made an appointment to see Dr. Sims after the 06/18 episode. He had blood work, revealing a serum creatinine of 1.5 mg/dl. He had a renal ultrasound that was described as showing no hydronephrosis, a tiny echogenic focus in the lright lower pole suggestive of a non-obstructing calculus and a 1.2 cm right upper pole lesion, possibly a cyst. A CT confirmed a calculus in the left lowerpole that was non-obstructing and a 13 mm cyst in the right upper pole. He is now seen by Dr Stanton. 2 weeks ago, he had a brief episode of right flank pain, 3/10 in severity, radiated anteriorly, present for a week, then resolved. He denies associated nausea, vomiting, gross hematuria, fever, or chills. Past Medical History: Hypothyroidism Nephrolithiasis Past Surgical History: Appendectomy, in his 30s Family History: No known family h/o urolithiasis. Father at age 76 of ? Cancer or heart disease. Mother is 84 years old; she had a lumpectomy for breast cancer. 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 with two children, a son and daughter. He smoked for 3-4 years when in , stopping in 1972. Review of Systems Constitutional: Negative for fever and chills. HENT: Negative for hearing loss. Eyes: Negative for visual disturbance. Respiratory: Negative for shortness of breath. Cardiovascular: Negative for chest pain and palpitations. Gastrointestinal: Negative for abdominal pain. Genitourinary: Negative for hematuria and flank pain. Musculoskeletal: Negative for back pain. Neurological: Negative for weakness and numbness. Hematological: Does not bruise/bleed easily. Objective: Physical Exam Vitals reviewed. Constitutional: He is oriented to person, place, and time. He appears well- developed and well-nourished. No distress. HENT: Head: Normocephalic and atraumatic. Eyes: No scleral icterus. Cardiovascular: Normal rate. Pulmonary/Chest: Effort normal. Abdominal: Soft. He exhibits no distension and no mass. No tenderness. He has no rebound and no guarding. Genitourinary: No CVA tenderness to percussion Neurological: He is alert and oriented to person, place, and time. Skin: Skin is warm and dry. He is not diaphoretic. Psychiatric: He has a normal mood and affect. His behavior is normal. Labs: I reviewed his 24 h urine (scanned into eD) Imaging studies: I have reviewed the available [facility] renal ultrasound report from 06/2011. This reveals no evidence of hydronephrosis and a possible small nonobstructing right renal stone, as well as a 1.2 cm right renal cyst. Assessment and Plan: Impression/Plan: Nephrolithiasis. 24 hour urine notable for low urine volume. No current renal colic symptoms, however, he would like to have updated imaging. We discussed pros and cons of the imaging strategies. I order KUB and renal u/s. He will follow up by phone; then will try to obtain his outside CT. ADDENDUM: I have reviewed his u/s which revealed a small nonobstructing 4mm left lower pole renal stone and an incidental 9mm bladder stone. I discussed these with him, and discussed mgmt options, risks,benefits, limitations for each. As the bladder stone may be symptomatic, he is considering cystoscopic treatment (cystolitholopaxy) for this. He will call me to discuss if he wishes to pursue treatment. We also discussed that bladdwe stones may be related to bladder outlet obstruction and prostatic enlargement. documented in this encounter Plan of Treatment Not on file documented as of this encounter Results * US retroperitoneal complete (11/17/2011 1:52 PM EDT) Anatomical Region Laterality Modality Abdomen Ultrasound 11/17/2011 1:52 PM EDT Narrative 11/17/2011 2:11 PM EDT ? Renal ? (Signed Final 11/17/2011 02:10 pm) Patient Info ID: ? [id number] ? : ??[birth year] (61 yrs) Name: ? JENARO FLORES ?Visit Date: 11/17/2011 01:49 pm Performed By Performed By: ?Bijal Jha RDMS Attending: ? Bert Walls MD Referred By: ? XANDER MCGILL MD Service(s) Provided URETRO - Retroperitoneal Complete - [id number] ? [id number] Indications Hx of kidney stones Right Kidney Size (cm) ?L: ??9.9 Cortical Thickness: ?Normal Cortical Echogenicity: ?? Echogenic Hydronephrosis: ?No sonographic evidence ------- Lesions ------- # ?Date ?Location ?Description ? L ? AP ? TV (cm) 1 ?11/17/11 ?Upper pole ?Simple cyst ?1.2 ?1.5 ?0.9 Left Kidney Size (cm) ?L: ??10 Cortical Thickness: ?Normal Cortical Echogenicity: ?? Normal Hydronephrosis: ?No sonographic evidence Comment: ?Multiple niranjan-pelvic cysts. 4 mm lower pole stone Urinary Bladder Pre-void (cm) ? L: ??3.8 ? AP: ??4.2 ? TV: ??5.8 Vol (ml): ?48.5 Comment: ?Partially distended, normal contour. 9 mm renal ? calculi Impression Ultrasound - ??Retroperitoneal Complete - Summary 9 mm. mobile bladder calculus possible tiny stones in both kidneys, nothing definite. Bilateral simple renal cysts, small. I ??viewed the images and agree with the above interpretation. Thank you for allowing us to participate in the care of JENARO FLORES. Please do not hesitate to call if you have any questions. ?Bert Walls MD Electronically Signed Final Report ?? 11/17/2011 02:10 pm Procedure Note Bert Walls MD - 11/17/2011 Renal (Signed Final 11/17/2011 02:10 pm) Patient Info ID: [id number] : [birth year] (61 yrs) Name: JENARO FLORES Visit Date: 11/17/2011 01:49 pm Performed By Performed By: Bijal Jha RDMS Attending: Bert Walls MD Referred By: XANDER MCGILL MD Service(s) Provided URETRO - Retroperitoneal Complete - [id number] Indications Hx of kidney stones Right Kidney Size (cm) L: 9.9 Cortical Thickness: Normal Cortical Echogenicity: Echogenic Hydronephrosis: No sonographic evidence ------- Lesions ------- # Date Location Description L AP TV (cm) 1 11/17/11 Upper pole Simple cyst 1.2 1.5 0.9 Left Kidney Size (cm) L: 10 Cortical Thickness: Normal Cortical Echogenicity: Normal Hydronephrosis: No sonographic evidence Comment: Multiple niranjan-pelvic cysts. 4 mm lower pole stone Urinary Bladder Pre-void (cm) L: 3.8 AP: 4.2 TV: 5.8 Vol (ml): 48.5 Comment: Partially distended, normal contour. 9 mm renal calculi Impression Ultrasound - Retroperitoneal Complete - Summary 9 mm. mobile bladder calculus possible tiny stones in both kidneys, nothing definite. Bilateral simple renal cysts, small. I viewed the images and agree with the above interpretation. Thank you for allowing us to participate in the care of JENARO FLORES. Please do not hesitate to call if you have any questions. Bert Walls MD Electronically Signed Final Report 11/17/2011 02:10 pm Xander Mcgill Jr., MD IMG US GEN ORDERAB LES * XR abdomen 1 view (11/17/2011 11:10 AM EDT) Anatomical Region Laterality Modality Abdomen N/A Radiographic Reena ging 11/17/2011 11:1 0 AM EDT Impressions 11/22/2011 3:46 PM EDT IMPRESSION: Intravesicular calculus identified. ??No other urinary calculi are seen (please also refer to ultrasound from the same day). ?? Film and interpretation reviewed by the attending Narrative 11/22/2011 3:46 PM EDT AP VIEW OF THE ABDOMEN: HISTORY: ??Evaluation for kidney stones. COMPARISON: ??Compared to ultrasound from 11/17/11. FINDINGS: ??No calcific densities are seen in the region of the renal fossa or along the expected course of the ureters. ??Calcification is seen projecting over the urinary bladder, and likely corresponds with intravesicular calculus seen on comparison ultrasound. ??Stool is present in the ascending colon and stool and air reach the level of the rectum. ??An additional round 1.5 cm calcific density is present in the right upper quadrant, not in the region of the renal fossa, and may represent a gallstone. ?? The skeletal structures appear osteopenic. Procedure Note Elsy Ugrate MD - 11/22/2011 AP VIEW OF THE ABDOMEN: HISTORY: Evaluation for kidney stones. COMPARISON: Compared to ultrasound from 11/17/11. FINDINGS: No calcific densities are seen in the region of the renal fossaor along the expected course of the ureters. Calcification is seenprojecting over the urinary bladder, and likely corresponds with intravesicularcalculus seen on comparison ultrasound. Stool is present in the ascending colonand stool and air reach the level of the rectum. An additional round 1.5 cm calcific density is present in the right upper quadrant, not in the regionof the renal fossa, and may represent a gallstone. The skeletal structures appear osteopenic. IMPRESSION IMPRESSION: Intravesicular calculus identified. No other urinary calculi are seen(please also refer to ultrasound from the same day). Film and interpretation reviewed by the attending Xander Mcgill Jr., MD IMG DX ORDERABLES documented in this encounter Visit Diagnoses Diagnosis Nephrolithiasis- Primary Calculus of kidney Nephrolithiasis Calculus of kidney Nephrolithiasis Calculus of kidney documented in this encounter Care Teams Manager Of Revenue Relationship Specialty Start Date End Date Andrew Sims MD PCP - General 06/30/10 05/17/17 documented as of this encounter
--- OUTSIDE RECORDS SUMMARY | 2024-09-11 01:20 | XMS_ITS | Encounter Summary ---
Author Organization [facility] [place] [address] Care Team Providers Care Section Chief Name Role Phone Andrew Zarate MD Primary Care Provider U frankyailable Reason for Visit * Reason Comments Chronic Kidney Disease Encounter Details Date Type Department Care Team (Latest Contact Info) Description 09/24/2011 9:05 AM EST Office Visit [place] [address] Efren Stanton MD CKD (chronic kidney disease) (Primary Dx) Discharge Disposition: Home Social History Tobacco Use Types Packs/Day Years Used Date Smoking Tobacco: Former Sex and Gender Information Value Date Recorded Sex Assigned at Not on file Gender Identity Not on file Sexual Orientation Not on file documented as of this encounter Last Filed Vital Signs Vital Sign Reading Time Taken Comments Blood Pressure 144/87 09/24/2011 9:14 AM EST Pulse 74 09/24/2011 9:14 AM EST Temperature - - Respiratory Rate - - Oxygen Saturation - - Inhaled Oxygen Concentration - - Weight 83.5 kg (184 lb) 09/24/2011 9:14 AM EST Height 172.7 cm (5' 8) 09/24/2011 9:14 AM EST Body Mass Index 27.98 09/24/2011 9:14 AM EST documented in this encounter Progress Notes * Efren Stanton MD - 09/24/2011 9:38 AM EST Hypertension/Nephrology Consultation Jenaro Flores [id number] 1950 ID: [id number] y.o. old male seen at the request of Dr. Zarate for evaluation of renal insufficiency and nephrolithiasis. Past Medical History: Hypothyroidism Nephrolithiasis Past Surgical History: Appendectomy, in his 30s History of Present Illness: He was well until 2006 when he first had a stone episode. CT showed right hydronephrosis with perinephric and periureteral stranding; a 3mm calculus was seen in the right hemipelvis which most likely lies the distal right ureter. He was able to pass and retrieve the stone and took it to [facility]. He is not aware if a [...] He made an appointment to see Dr. Zarate after the 06/18 episode.He had blood work, revealing a serum creatinine of 1.5 mg/dl. He had a renal ultrasound that was described as showing no hydronephrosis, a tiny echogenic focus in the lright lower pole suggestive of a non-obstructing calculus and a 1.2 cm right upper pole lesion, possibly a cyst. A CT confirmed a calculus in the left lower pole that was non-obstructing and a 13 mm cyst in the right upper pole. He has a feeling when he voids, and feels as though he is incompletely emptying and has an urge to void again. No hematuria with these episodes, including 2006. He had an episode of gross hematuriayears ago (~1995) that happened only once; he saw Dr. Zarate and was told the urine had cleared. No dysuria. He had nausea with stone episodes. Repeat serum creatinine on 08/10/11 was 1.8 mg/dl and he was referred to our office. He takes one-a-day vitamin for men but no other supplements or calcium. He eats red meat (venison) 2-3 times a week.He drinks coffee in morning and glass of soda with meals; often a glass of milk with lunch. Medications: No current outpatient prescriptions on file prior to encounter. Allergies / ADRs: Not on File Justin sawdust leads to rash, facial and eye swelling Family History: Father at age 76 of ? Cancer or heart disease. Mother is 84 years old; she had a lumpectomy for breast cancer. He four siblings, two of whom of trauma, murder. One sister is well and a brother has arthritis. Two children; daughter had juvenile RA.A niece had a kdiney problem as a young girl and is fine now. 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 with two children, a son and daughter. He smoked for 3-4 years when in , stopping in 1972. Review of Systems: System Abnormalities Constitutional He feels well now. Weight is stable. Eye Vision stable with glasses ENT Teeth in good repair CV No chest pain or palpitations; BP has been normal Resp No shortness of breath GI No N/V/D/C. He had a colonoscopy several years ago. He used a large volume/jug preparation. He had hemorrhoids See HPI Skin No rashes or skin cancers Allergy Endocrine Hypothyroidism on replacement. No diabetes Neurologic No focal weakness Musculoskeletal He had an adhesive capsulitis of left shoulder in past that was broken up. He hasmuscle cramps at night Lymph No enlarged lymph glands Psych Y N All other systems reviewed and negative. x Physical Examination: Filed Vitals: 09/24/11 0914 BP: 144/87 Pulse: 74 General: WDWN man in no distress Eye: LESTER. EOMs intact. Fundi normal ENT: Oropharynx benign Neck: No JVDor thyromegaly CV: RRR. S1, S2 normal. No murmur Resp: Clear lungs Abd: Soft, non-tender. BS normal Back: No CVA tenderness Lymph: No cervical or submandibular adenopathy Ext: No pretibial edema Skin: No rash Neuro: FISHER. Gait normal. DTRs 1+ and symmetrical. Flexor plantar responses Labs: Urinalysis in our office: pH 7, spec grav 1.015, neg leukocytes, neg nitrite, neg-trace protein, neg glucose, neg ketones, trace blood. Microscopic: 0-2 RBC/hpf. Large amount of amorphous phosphates. Recent Results (from the past 24 hour(s)) COMPREHENSIVE METABOLIC PANEL (NON-FASTING) Component Value Range ??? Glucose Lvl 94 60 - 199 (mg/dL) ??? BUN 18 10 - 20 (mg/dL) ??? Creatinine 1.42 0.80 - 1.50 (mg/dL) ??? Sodium 142 135 - 145 (mmol/L) ??? Potassium 4.1 3.5 - 5.0 (mmol/L) ??? Chloride 104 98 - 107 (mmol/L) ??? CO2 28 22 - 31 (mmol/L) ??? Anion Gap 10 5 - 15 (mmol/L) ??? Calcium 9.9 8.5 - 10.5 (mg/dL) ??? Total Protein 7.0 6.4 - 8.3 (gm/dL) ??? Albumin 4.4 3.2 - 5.2 (gm/dL) ??? AST 25 0 - 39 (unit/L) ??? ALT 33 0 - 55 (unit/L) ??? Alk Phos 93 40 - 120 (unit/L) ??? Total Bilirubin 0.3 0.2 - 1.3 (mg/dL) ??? Bili, Direct 0.1 0.0 - 0.3 (mg/dL) ? ? Estimated GFR 51 (*) >=60 CBC (WITH DIFF) Component Value Range ??? WBC 6.8 4.0 - 10.0 (x10(3)/mcL) ??? RBC 4.35 (*) 4.63 - 6.08 (x10(6)/mcL) ??? Hemoglobin 14.1 13.7 - 17.5 (gm/dL) ??? Hematocrit 40.8 40.0 - 51.0 (%) ??? MCV 93.8 (*) 79.0 - 92.0 (fL) ??? MCH 32.4 (*) 25.6 - 32.2 (pg) ??? MCHC 34.6 32.0 - 36.5 (gm/dL) ??? Platelets 217 145 - 370 (x10(3)/mcL) ??? RDWSD 41.6 35.0 - 46.0 (fL) ??? RDWCV 12.2 10.9 - 14.4 (%) ??? MPV 10.0 9.0 - 12.0 (fL) PHOSPHORUS Component Value Range ??? Phosphorus 2.7 2.5 - 4.5 (mg/dL) PTH Component Value Range ??? PTH 28 15 - 65 (pg/mL) DIFFERENTIAL, AUTOMATED Component Value Range ??? Neutrophils % 56.5 34.0 - 71.0 (%) ??? Neutr Abs (ANC) 3.86 1.50 - 6.30 (x10(3)/mcL) ??? Lymphocytes % 25.1 19.0 - 53.0 (%) ??? Lymphocytes Abs 1.7 1.0 - 3.6 (x10(3)/mcL) ??? Monocytes % 13.5 (*) 4.0 - 13.0 (%) ??? Monocyte Abs 0.9 0.2 - 1.0 (x10(3)/mcL) ??? Eosinophils % 4.5 0.0 - 7.0 (%) ??? Eosinophils Abs 0.3 0.0 - 0.5 (x10(3)/mcL) ??? Basophils % 0.3 0.0 - 2.0 (%) ??? Basophils Abs 0.0 0.0 - 0.2 (x10(3)/mcL) ??? Immature Gran % 0.10 0.00 - 0.66 (%) ??? Randa Gran Abs 0.01 0.00 - 0.05 (x10(3)/mcL) PROTEIN/CREATININE RATIO, URINE Component Value Range ??? U Creatinine 140 (mg/dL) ??? U Protein Ran 14 (*) 0 - 12 (mg/dL) ? ? Prot/Cre Ratio <0.1 (ratio) MICROALBUMIN, URINE, RANDOM Component Value Range ??? U Creatinine 140 (mg/dL) ??? U Ran Malb Conc 58.7 (mg/L) ??? U Ran Malb Calc 42 (mcg/mg Cr) Assessment: 1. Nephrolithiasis, calcium, with unknown risk factors. 2. Chronic kidney disease, stage 3, possibly secondary to 1. Recommendations: 1. We will attempt to find a stone analysis report from 2006. 2. Obtaining serum creatinine values prior to 06/18 will be helpful. I will call Dr. Zarate' office for these and possible stone analysis report. 3. Two-24 hour urine collections ([facility]) for metabolic evaluation. 4. [facility] to [facility] 11[facility]17. Thank you for allowing me to participate in the care of this interesting patient. >the total time spent [id number] AND total time the provider spent counseling was xxx minutes. Please CC to: ANDREW ZARATE MD @PCPADD@ documented in this encounter Plan of Treatment Not on file documented as of this encounter Procedures Procedure Name Priority Date/Time Associated Diagnosis Comments PROTEIN/CREATININE RATIO, URINE Routine 09/24/2011 11:48 AM EST CKD (chronic kidney disease) U ALBUMIN/CRE RATIO STAT 09/24/2011 1 1:48 AM EST CKD (chronic kidney disease) PTH Routine 09/24/2011 10:34 AM EST CKD (chronic kidney disease) DIFFERENTIAL, AUTOMATED Routine 09/24/2011 10:34 AM EST CBC (WITH DIFF) Routine 09/24/2011 10:34 AM EST CKD (chronic kidney disease) PHOSPHORUS Routine 09/24/2011 10:34 AM EST CKD (chronic kidney disease) COMPREHENSIVE METABOLIC PANEL Routine 09/24/2011 10:34 AM EST CKD (chronic kidney disease) documented in this encounter Results * Microalbumin, urine, random (09/24/2011 11:48 AM EST) Creatinine, Urine 140 mg/dL CE RNER MILLENNIUM Albumin, Urine 58.7 mg/L WONG Stewart MILLENNIUM Albumin / Creatinin Ratio, Urine 42 mcg/mg Cr KALEN MILLENNIUM Comment: Reference Range* Random collection (mcg/mg creatinine) Normal ?<30 Microalbuminuria ?? 30 - 300 Clinical Albuminuria ?? >300 *[place] [employer]. Diabetic Nephropathy. Diabetes Care 1997;(Suppl 1):S24-S27 Exercise within 24 hour, infection, fever, CHF, marked hyperglycemia, and marked hypertension may elevate urinary albumin excretion over baseline values. Urine specimen (specimen) 09/24/2011 11:48 AM EST 09/24/2011 11:48 AM EST Narrative Resulting Agency Comment Spec In Lab Efren Stanton MD URINE ORDERABLES CERNER MILLENNIUM * (ABNORMAL) Protein/Creatinine Ratio, urine (09/24/2011 11:48 AM EST) Creatinine, Urine 140 mg/dL CERNER MILLENNIUM Protein, Urine 14(H) 0 - 12 mg/dL CERNER MILLENNIUM Protein / Creatinine Ratio, Urine <0.1 ratio CERNER MILLENNIUM Urine specimen (specimen) 09/24/2011 11:48 AM EST 09/24/2011 11:48 AM EST Narrative Resulting Agency Comment Spec In Lab Efren Stanton MD URINE ORDERABLES Performing Organization Address City/[facility]/ZIP Co de Phone Number CERNER MILLENNIUM * (ABNORMAL) DIFFERENTIAL, AUTOMATED (09/24/2011 10:34 AM EST) Neutrophil % 56.5 34.0 - 71.0 % CERNER MILLENNIUM Neutrophil Absolute 3.86 1.50 - 6.30 x10(3)/mc L CERNER MILLENNIUM Lymph % 25.1 19.0 - 53.0 % CERNER MILLENNIUM Lymphocytes Abs 1.7 1.0 - 3.6 x10(3)/mc L CERNER MILLENNIUM Monocyte % 13.5(H) 4.0 - 13.0 % CERNER MILLENNIUM Monocyte Abs 0.9 0.2 - 1.0 x10(3)/mc L CERNER MILLENNIUM Eos % 4.5 0.0 - 7.0 % CERNER MILLENNIUM Eosinophils Abs 0.3 0.0 - 0.5 x10(3)/mc L CERNER MILLENNIUM Basophil % 0.3 0.0 - 2.0 % CERNER MILLENNIUM Baso Absolute 0.0 0.0 - 0.2 x10(3)/mc L CERNER MILLENNIUM Immature Gran % 0.10 0.00 - 0.66 % CERNER MILLENNIUM Comment: Immature granulocytes(IG's)percentage and absolute count will include metamyelocytes, myelocytes, and promyelocytes. Blood smears from CBCs yielding IG's will be scanned manually for concordance. If this scan disagrees with the automated IG or if promyelocytes are noted, a manual differential will be performed. Immature Gran Absolute 0.01 0.00 - 0.05 x10(3)/mc L CERNER MILLENNIUM Blood specimen (specimen) 09/24/2011 10:34 AM EST 09/24/2011 10:40 AM EST Efren Stanton MD HEMATOLOGY ORDERA BLES KALEN BRAGAENNIUM * PTH (09/24/2011 10:34 AM EST) Pathologist [facility] Parathyroid Hormone 28 15 - 65 pg/mL CERNER MILLENNIUM Blood specimen (specimen) 09/24/2011 10:34 AM EST 09/24/2011 10:40 AM EST Narrative Resulting Agency Comment Spec In Lab Efren Stanton MD CHEMISTRY ORDERAB LES Performing Organization Address City/[facility]/ZIP Co de Phone Number KALEN BRAGAENNIUM * Phosphorus (09/24/2011 10:34 AM EST) Pathologist [facility] Phosphorus 2.7 2.5 - 4.5 mg/dL CERNER MILLENNIUM Blood specimen (specimen) 09/24/2011 10:34 AM EST 09/24/2011 10:40 AM EST Narrative Resulting Agency Comment Spec In Lab Efren Stanton MD CHEMISTRY ORDERAB LES KALEN DUBONIUM * (ABNORMAL) CBC (with Diff) (09/24/2011 10:34 AM EST) White Blood Cell 6.8 4.0 - 10.0 x10(3)/mc L CERNER MILLENNIUM Red Blood Cell 4.35(L) 4.63 - 6.08 x10(6)/mc L CERNER MILLENNIUM Hemoglobin 14.1 13.7 - 17.5 gm/dL CERNER MILLENNIUM Hematocrit 40.8 40.0 - 51.0 % CERNER MILLENNIUM Mean Cell Volume 93.8(H) 79.0 - 92.0 fL CERNER MILLENNIUM Mean Cell Hemoglobin 32.4(H) 25.6 - 32.2 pg CERNER MILLENNIUM Mean Cell Hemoglobin Concentration 34.6 32.0 - 36.5 gm/dL CERNER MILLENNIUM Platelet 217 145 - 370 x10(3)/mc L CERNER MILLENNIUM RDW Standard Deviation 41.6 35.0 - 46.0 fL CERNER MILLENNIUM RDW coefficient of variation 12.2 10.9 - 14.4 % CERNER MILLENNIUM Mean Platelet Volume 10.0 9.0 - 12.0 fL CERNER MILLENNIUM Blood specimen (specimen) 09/24/2011 10:34 AM EST 09/24/2011 10:40 AM EST Narrative Resulting Agency Comment Spec In Lab Efren Stanton MD HEMATOLOGY ORDERA BLES CERNER MILLENNIUM * (ABNORMAL) Comprehensive metabolic panel (non-fasting) (09/24/2011 10:34 AM EST) Glucose 94 60 - 199 mg/dL CERNER MILLENNIUM Comment:Diabetes: >=200 mg/d L plus symptoms Blood Urea Nitrogen 18 10 - 20 mg/dL CERNER MILLENNIUM Creatinine 1.42 0.80 - 1.50 mg/dL CERNER MILLENNIUM Sodium 142 135 - 145 mmol/L CERNER MILLENNIUM Potassium 4.1 3.5 - 5.0 mmol/L CERNER MILLENNIUM Comment: Please note: ??Patients with WBC >100,000 may have falsely elevated Potassium levels. ??For accurate Potassium quantification in these patients send serum separator tube (gold top) for subsequent determinations. ??Contact the Clinical Chemistry Laboratory if there are any questions. Chloride 104 98 - 107 mmol/L CERNER MILLENNIUM Carbon Dioxide 28 22 - 31 mmol/L CERNER MILLENNIUM Anion Gap 10 5 - 15 mmol/L CERNER MILLENNIUM Calcium 9.9 8.5 - 10.5 mg/dL CERNER MILLENNIUM Protein, Total 7.0 6.4 - 8.3 gm/dL CERNER MILLENNIUM Albumin 4.4 3.2 - 5.2 gm/dL CERNER MILLENNIUM Aspartate Aminotransferase 25 0 - 39 unit/L CERNER MILLENNIUM Alanine Aminotransferase 33 0 - 55 unit/L CERNER MILLENNIUM Alkaline Phosphatase 93 40 - 120 unit/L CERNER MILLENNIUM Bilirubin, Total 0.3 0.2 - 1.3 mg/dL CERNER MILLENNIUM Bilirubin, Direct 0.1 0.0 - 0.3 mg/dL CERNER MILLENNIUM Est Glomerular Filtration Rate 51(L) >=60 CERNER MILLENNIUM Comment: The National Kidney Disease Education Program (NKDEP) has recommended all laboratories report estimated GFR (eGFR) along with plasma creatinine measurements to assist you with recognition of early kidney disease. Caveats: ??Plasma creatinine should be at steady-state (unchanged within the past week). For patients multiply eGFR by 1.2. The MDRD equation has not been validated for pediatric patients and is only valid for patients with age >= 18 years. At present, NKDEP does NOT recommend using the MDRD equation for drug dosing purposes and pharmacists should continue to use their current dosing methods. In addition, numerical eGFR values greater than 60 ml/min/1.73 square meters should be treated as > 60, and not an exact number due to greater inaccuracies at these higher values. Per NKDEP, they classify normal renal function as any GFR >60ml/min/1.73 square meters; chronic kidney disease when GFR <60, and renal failure when GFR <15. ??This calculation may not be valid for patients with atypical muscle mass (very lean or obese), acute renal failure, and in patients with diabetic kidney disease. References: http://nkdep.nih.gov/resources/NKDEP_Suggestn4Labs_0606_508.pdf http://www.kidney.org/professionals/kls/pdf/faq_gfr.pdf Blood specimen (specimen) 09/24/2011 10:34 AM EST 09/24/2011 10:40 AM EST Narrative Resulting Agency Comment Spec In Lab Efren Stanton MD CHEMISTRY ORDERAB LES KALEN [facility] documented in this encounter Visit Diagnoses Diagnosis CKD (chronic kidney disease)- Primary Chronic kidney disease, unspecified documented in this encounter Care Teams Section Chief Relationship Specialty Start Date End Date Andrew Zarate MD PCP - General 06/30/10 05/17/17 documented as of this encounter
--- OUTSIDE RECORDS SUMMARY | 2024-09-11 01:20 | XMS_ITS | Referral Summary ---
Author Organization [facility] Address [address] [place] [address] Care Team Providers Care Director Food And Beverage Name Role Phone Unknown, Provider Primary Care Provider Unava ilable Social History Tobacco Use Types Packs/Day Years Used Date Smoking Tobacco: Never Assessed Interpersonal Safety Answer Date Record ed Physically Hurt Never 03/10/2020 Verbally Threaten Not on file 03/10/2020 Sex and Gender Information Value Date Recorded Sex Assigned at Not on file Legal Sex Male 20:52 EST Gender Identity Not on file Sexual Orientation Not on file Plan of Treatment Not on file Care Teams Director Food And Beverage Relationship Specialty Start Date End Date Unknown, Provider, PCP - General 08/31/17
--- OUTSIDE RECORDS SUMMARY | 2024-09-11 01:20 | XMS_ITS | Encounter Summary ---
Author Organization [facility] [place] [address] Care Team Providers Care Generator Assembler Name Role Phone Andrew Sims MD Primary Care Provider Rajendra schultz Encounter Details Date Type Department Care Team (Latest Contact Info) Description 01/04/2012 2:20 PM EDT - 01/04/2012 11:59 PM EDT Hospital [place] [address] Nephrolithiasis Social History Tobacco Use Types Packs/Day Years [...] on file documented as of this encounter Medications at Time of Discharge Medication Sig Dispensed Refills Start Date End Date OXYcodone-acetaminophen (PERCOCET) 5-325 mg per tablet Take 1 tablet by mouth every 4 hours as needed for Pain. 30 tablet 0 12/03/2011 levothyroxine (SYNTHROID) 100 mcg tabletIndications:CKD (chronic kidney disease) Take 100 mcg by mouth daily. multivitamin (THERAGRAN) tabletIndications:CKD (chronic kidney disease) Take 1 tablet by mouth daily. documented as of this encounter Plan of Treatment Not on file documented as of this encounter Procedures Procedure Name Priority Date/Time Associated Diagnosis Comments US RETROPERITONEAL COMPLETE Routine 01/04/2012 3:07 PM EDT Nephrolithiasis documented in this encounter Results * US retroperitoneal complete (01/04/2012 3:07 PM EDT) Anatomical Region Laterality Modality Abdomen Ultrasound 01/04/2012 3:07 PM EDT Narrative 01/04/2012 3:21 PM EDT ? Renal ? (Signed Final 01/04/2012 03:20 pm) Patient Info ID: ? [id number] ? : ??[birth year] (61 yrs) Name: ? JENARO Steph HALESHABANA ?Visit Date: 01/04/2012 03:02 pm Performed By Performed By: ?Daisy Byrd [facility] Attending: ? Paulina GODFREY, [place] Elam Referred By: ? XANDER MCGILL MD Service(s) Provided URETRO - Retroperitoneal Complete - [id number] ? [id number] Indications History of kidney stones, Assess for stones; Right Kidney Size (cm) ?L: ??10.7 Cortical Thickness: ?Normal Cortical Echogenicity: ?? Normal Hydronephrosis: ?No sonographic evidence ------- Lesions ------- # ?Date ?Location ?Description ? L ? AP ? TV (cm) 1 ?01/04/12 ?Upper pole ?Simple cyst ? 1 ? 1.3 ?1.2 1 ?11/17/11 ?Upper pole ?Simple cyst ?1.2 ?1.5 ?0.9 Left Kidney Size (cm) ?L: ??10.2 Cortical Thickness: ?Normal Cortical Echogenicity: ?? Echogenic Hydronephrosis: ?No sonographic evidence ------- Lesions ------- # ?Date ?Location ?Description ? L ? AP ? TV (cm) 1 ?01/04/12 ?Lower pole ?Cyst with ?0.9 ?0.7 ?0.8 ?Elidia-pelvic ?? calcification in ?posterior wall 2 ?01/04/12 ?Mid Elidia- ? Simple cyst ?0.5 ?0.7 ?0.5 ?pelvic 3 ?01/04/12 ?Upper pole ?Renal calculus ? 0.3 ? 0.3 Urinary Bladder Pre-void (cm) ? L: ??8 ? AP: ??6 ? TV: ??5.5 Vol (ml): ?138.2 Comment: ?Partially distended, normal contour. Additional Findings Incidental Finding: Cholelithiasis Impression Ultrasound - ??Retroperitoneal Complete - Summary previously seen echogenic focus (?stone vs clot) in t he bladder no longer present. Right kidney with stable cysts. ??no stones. ??no hydro. Left kidney with stable cysts and new left upperpole calculus. ??Left lower pole calculus appears to represent calcification along posterior wall of stable peripelvic cyst. ??No hydro I ??viewed the images and agree with the above interpretation. Thank you for allowing us to participate in the care of JENARO FLORES. Please do not hesitate to call if you have any questions. ?Kenya Ratliff MD Electronically Signed Final Report ?? 01/04/2012 03:20 pm Procedure Note Kenya Contreras MD - 01/04/2012 Renal (Signed Final 01/04/2012 03:20 pm) Patient Info ID: [id number] : [birth year] (61 yrs) Name: JENARO FLORES Visit Date: 01/04/2012 03:02 pm Performed By Performed By: Daisy Byrd [facility] Attending: Kenya Gallardo MD Referred By: XANDER MCGILL MD Service(s) Provided URETRO - Retroperitoneal Complete - [id number] Indications History of kidney stones, Assess for stones; Right Kidney Size (cm) L: 10.7 Cortical Thickness: Normal Cortical Echogenicity: Normal Hydronephrosis: No sonographic evidence ------- Lesions ------- # Date Location Description L AP TV (cm) 1 01/04/12 Upper pole Simple cyst 1 1.3 1.2 1 11/17/11 Upper pole Simple cyst 1.2 1.5 0.9 Left Kidney Size (cm) L: 10.2 Cortical Thickness: Normal Cortical Echogenicity: Echogenic Hydronephrosis: No sonographic evidence ------- Lesions ------- # Date Location Description L AP TV (cm) 1 01/04/12 Lower pole Cyst with 0.9 0.7 0.8 Elidia-pelvic calcification in posterior wall 2 01/04/12 Mid Elidia- Simple cyst 0.5 0.7 0.5 pelvic 3 01/04/12 Upper pole Renal calculus 0.3 0.3 Urinary Bladder Pre-void (cm) L: 8 AP: 6 TV: 5.5 Vol (ml): 138.2 Comment: Partially distended, normal contour. Additional Findings Incidental Finding: Cholelithiasis Impression Ultrasound - Retroperitoneal Complete - Summary previously seen echogenic focus (?stone vs clot) in t he bladder no longer present. Right kidney with stable cysts. no stones. no hydro. Left kidney with stable cysts and new left upperpole calculus. Left lower pole calculus appears to represent calcification along posterior wall of stable peripelvic cyst. No hydro I viewed the images and agree with the above interpretation. Thank you for allowing us to participate in the care of JENARO FLORES. Please do not hesitate to call if you have any questions. Kenya Ratliff MD Electronically Signed Final Report 01/04/2012 03:20 pm Xander Mcgill Jr., MD IMG GEN ORDERAB LES documented in this encounter Visit Diagnoses Diagnosis Nephrolithiasis Calculus of kidney documented in this encounter Care Teams Generator Assembler Relationship Specialty Start Date End Date Andrew Sims MD PCP - General 06/30/10 05/17/17 documented as of this encounter
--- OUTSIDE RECORDS SUMMARY | 2024-09-11 01:20 | XMS_ITS | Encounter Summary ---
Author Organization [facility] Address [facility] [place] [address] Care Team Providers Care Live Games Dealer Name Role Phone Andrew Sims MD Primary Care Provider U frankyailable Reason for Visit * Reason Comments Nephrolithiasis Encounter Details Date Type Department Care Team (Late st Contact Info) Description 11/23/2011 2:15 PM EDT [place] [address] Ravin Mcgill Jr., MD [facility] [place] [place] [address] Nephrolithiasis Discharge Disposition: Home Social History Tobacco Use Types Packs/Day Years Used Date Smoking Tobacco: Former Cigarettes Q uit: 11/22/1972 Sex and Gender Information Value Date Recorded Sex Assigned at Not on file Gender Identity Not on file Sexual Orientation Not on file documented as of this encounter Last Filed Vital Signs Vital Sign Reading Time Taken Comments Blood Pressure 134/76 11/23/2011 1:50 PM EDT Pulse 65 11/23/2011 1:50 PM EDT Temperature - - Respiratory Rate - - Oxygen Saturation - - Inhaled Oxygen Concentration - - Weight 79.8 kg (176 lb) 11/23/2011 1:50 PM EDT Height 172.7 cm (5' 8) 11/23/2011 1:50 PM EDT Body Mass Index 26.76 11/23/2011 1:50 PM EDT documented in this encounter Progress Notes * Ravin Mcgill Jr., MD - 11/23/2011 1:57 PM EDT Subjective: Patient ID: Jenaro Flores is [...] retrieve the stone and took it to [facility]. He is not aware if a stone [...] nausea, vomiting, gross hematuria, fever, or chills. I have reviewed his u/s which revealed a small nonobstructing 4mm left lower pole renal stone and an incidental 9mm bladder stone. I discussed these with him, and discussed mgmt options, risks,benefits, limitations for each. As the bladder stone may be symptomatic, he is considering cystoscopic treatment (cystolitholopaxy) for this. We also discussed that bladder stones may be related to bladder outlet obstruction and prostatic enlargement. He notes in retrospect that he has had discomfort in the bladder occuring postvoid, mild in severity, brief in duration. Past Medical History: Hypothyroidism Nephrolithiasis Past Surgical History: Appendectomy, in his 30s Family History: No known family h/o urolithiasis. Father at age 76 of ? Cancer or heart disease. Mother is 84 years old; she had a lumpectomy for breast cancer. 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 with two children, a son and daughter. He smoked for 3-4 years when in , stopping in 1972. Review of Systems unchanged since last visit of 11/17/2011 Objective: Physical Exam Vitals reviewed. Constitutional: He is oriented to person, place, and time. He appears well- developed and well-nourished. No distress. HENT: Head: Normocephalic and atraumatic. Eyes: No scleral icterus. Cardiovascular: Normal rate and regular rhythm. No murmur heard. Pulmonary/Chest: Effort normal and breath sounds normal. No respiratory distress. He has no wheezes. He has no rales. He exhibits no tenderness. Abdominal: Soft. He exhibits no distension and no mass. No tenderness. He has no rebound and no guarding. Genitourinary: Bladder nontender, not palpably distended No CVA tenderness to percussion Musculoskeletal: He exhibits no edema and no tenderness. Lymphadenopathy: He has no cervical adenopathy. Neurological: He is alert and oriented to person, place, and time. Skin: Skin is warm and dry. He is not diaphoretic. Psychiatric: He has a normal mood and affect. His behavior is normal. Imaging studies: I independently reviewed the renal ultrasound from 11/17/11. This reveals no evidence of hydronephrosis or hydroureter. A nonobstructing left lower pole 4mm stone and a 9mm bladder stone are noted. Assessment and Plan: Impression/Plan: Bladder stone I had a long discussion with Jenaro Flores regarding his bladder stone. We discussed that the stone is likely asymptomatic and may remain so indefinitely. He is concerned that it may become symptomatic and would like to have it treated proactively. We discussed management options of watchful waiting, SWL, cystolithotomy, cystolitholopaxy, and therelative risks, benefits, and limitations of each. We specifically discussed risks of bleeding, infection, injury to urethra, bladder,ureter, surrounding structures, failure to extract the stone, deve lopment of stricture, urinary retention, need for additional procedures, inability to access or remove stone, and risks of anesthesia and risks of heart attack, stroke, or . With an understanding of the above, he would like to proceed with cystolitholopaxy, and this will be scheduled at his convenience. I have asked him to call with any additional questions. documented in this encounter Plan of Treatment Not on file documented as of this encounter Visit Diagnoses Diagnosis Nephrolithiasis Calculus of kidney documented in this encounter Care Teams Live Games Dealer Relationship Specialty Start Date End Date Andrew Sims MD PCP - General 06/30/10 05/17/17 documented as of this encounter
--- OUTSIDE RECORDS SUMMARY | 2024-09-11 01:20 | XMS_ITS | Encounter Summary ---
Author Organization [facility] Address [facility] [place] [address] Care Team Providers Care Financial Analyst Intern Name Role Phone Andrew Sims MD Primary Care Provider Rajendra schultz Encounter Details Date Type Department Care Team (Latest Contact Info) Description 12/03/2011 10:58 AM EDT - 12/03/2011 3:10 PM EDT Hospital Encounter [place] [address] Xander Mcgill Jr., MD [facility] [place] [address] Discharge Disposition: Home Social History Tobacco Use [...] Sign Reading Time Taken Comments Blood Pressure 106/72 12/03/2011 2:25 PM EDT Pulse 66 12/03/2011 2:25 PM EDT Temperature 36.5 ??C (97.7 ??F) 12/03/2011 1:54 PM ED T Respiratory Rate 16 12/03/2011 2:25 PM EDT Oxygen Saturation 98% 12/03/2011 2:25 PM EDT Inhaled Oxygen Concentration - - Weight 80.3 kg (177 lb) 12/03/2011 11:07 AM EDT Height 172.7 cm (5' 8) 12/03/2011 11:07 AM EDT Body Mass Index 26.91 12/03/2011 11:07 AM EDT documented in this encounter Discharge Instructions * Discharge Instructions* Lori Myers RN - 12/03/2011 2:08 PM EDT General Anesthesia Discharge Instructions Go home and rest. You may be sleepy for several hours. Take it easy as sudden position changes may cause nausea. Be careful on stairs, as you may be unsteady on your feet. Follow a light to regular diet as tolerated today. If nausea occurs, start with clear liquids, and progress slowly to a regular diet. Do not drive, operate machinery, drink alcoholic beverages, or make important decisions for 24 hours after having general anesthesia. The medications given may change your reaction time or judgement without your awareness. IV site -- slight redness is normal, you can use warm compresses. If tenderness and redness increases or foul drainage occurs, please contact your M.D. Narcotic pain medications can cause constipation, please ask the surgeons office what they recommend for prevention of this. Some non-pharmaceutical means of constipation prevention include increasing intake of fluids, eating more fruits and vegetables as well as fruit juices Questions or problems after 5pm or on a weekend: Call the [facility] welding machine operator gas and ask for the doctor money laundering investigator covering for Dr Mcgill. * Patient Instructions* Franc Burton MD - 12/03/2011 2:00 PM EDT Instructions following Cystoscopic Surgery with a ureteral stent Wound Care: None needed Activity: As tolerated by your comfort level. Urination: You will likely have a small amount of blood in your urine for the next several days, upto 10-14 days. This is normal; however, if you are passing large amounts of blood clots, bright redblood or are bleeding an unable to urinate please call our office at [phone] 5PM or [phone] after hours. Kidney Stone Patients: Try and drink enough fluid to make one half gallon of urine daily. Ureteral Stent Patients: You have a ureteral stent in place, it is normal for it to cause some irritation in your bladder. You may feel that you need to urinate often or with urgency, also there may be irritation when you urinate. This is normal. If you cannot tolerate this irritation or if you have severe back or side pain, you should call our office [phone] before 5PM or [phone] afterhours. Call Doctor for: Please call if you have copious blood in your urine, severe back or side pain, pain not controlled by pain medications, persistent nausea and vomiting, or for any fevers greater edma785.3 F. The number for questions is [phone] before 5 PM weekdays and [phone] after 5 PM and weekends. Pain Medication: No driving for 8 hours after any dose of opioid pain medication if one was prescribed for you. You may use ibuprofen (motrin, advil) in addition to this medication if your pain is not totally controlled by the opioid. Follow-up: We will plan to see you in the office next Tuesday to remove your stent and again in lateMay with a renal US. You will receive a call with the time of that appointment. documented in this encounter Medications at Time of Discharge Medication Sig Dispensed Refills Start Date End Date OXYcodone-acetaminophen (PERCOCET) 5-325 mg per tablet Take 1 tablet by mouth every 4 hours as needed for Pain. 30 tablet 0 12/03/2011 levothyroxine (SYNTHROID) 100 mcg tabletIndications:CKD (chronic kidney disease) Take 100 mcg by mouth daily. multivitamin (THERAGRAN) tabletIndications:CKD (chronic kidney disease) Take 1 tablet by mouth daily. ciprofloxacin (CIPRO) 500 mg tablet Take 1 tablet by mouth 2 times daily for 2 days. Take tonight and tomorrow AM, then morning of and evening after stent is removed. 4 tablet 0 12/03/2011 12/05/2011 documented as of this encounter H&P Notes * Franc Burton MD - 12/03/2011 12:19 PM EDT Patient Name: Jenaro Flores Patient Age: 61 y.o. Birthdate: 1950 Admit date: 12/03/2011 Attending Physician: Xander Mcgill Jr., MD ID: [id number] M with bladder stone No changes since seen in the office on 11/22 Heart RRR Lungs CTA OK to proceed to OR for procedure. documented in this encounter Miscellaneous Notes * Miscellaneous - Provider, Scanning - 12/27/2011 9:11 PM EDT * Miscellaneous - Provider, Scanning - 12/03/2011 8:48 PM EDT * OR Attestation - Xander Mcgill Jr., MD - 12/03/2011 2:25 PM EDT Attestation: Case Date: 12/03/2011 I was present and I participated during the entire procedure. Suspected bladder stone was in fact distal right ureteral stone. I discussed this finding with his , mgmt options, relative risks and benefits, and she agreed on his behalf to proceed with right ureteroscopy with laser lithotripsy and stent placement. XANDER MCGILL JR, MD 12/03/2011 * Op Note - Franc Burton MD - 12/03/2011 2:[address] [facility] [place] Patient Name: Jenaro Flores : [id number] MR#: [id number] Case Date: 12/03/2011 Surgeon: Surgeon(s) and Role: * XANDER MCGILL JR, MD - Primary * FRANC BURTON MD Preoperative diagnosis: BLADDER STONES Postoperative diagnosis: BLADDER STONES Procedure(s): MODIFIER HOLMIUM LASER CYSTOURETEROSCOPY, LITHOTRIPSY Anesthesia: General Estimated Blood Loss: 5 ml Drains: 6 fr 26 cm stent in right ureter Disposition: awakened from anesthesia, extubated and taken to the recovery room in a stable condition, having suffered no apparent untoward event. Condition: doing well without problems (Please see the Surgical Encounter Summary for any Implant and Specimen details pertinent to this patient.) Indications: Mr. Flores is a 61-year-old gentleman who, on imaging, was thought to have a bladder stone and presented for management prior to this becoming symptomatic. Findings: The patient had no stone in the bladder, but there was a large stone lodged in the distal right ureter. Ureteroscopy was performed, and the stone was fragmented with the laser and the pieces were extracted. There were no further stones seen. Description of Procedure: The patient was seen preoperatively. Consent was obtained. He was brought back to the Operating Room. He was placed on the operating room table. Anesthesia was introduced. He was placed in the dorsal lithotomy position and prepped and draped in the usual fashion. A surgical time-out was performed, and the cystoscope was inserted into the bladder. The bladder was fully inspected with no mucosal abnormalities and no evidence of stone in the bladder. However, on inspecting the right ureteral orifice, this was somewhat edematous and heaped up, and we could see a stone in the ureteral orifice. A Glidewire was advanced after consultation with the patient's agreed to proceeding with removal of the stone. The Glidewire was advanced up into the renal pelvis. The scope was removed, and the semirigid ureteroscope was advanced into the distal ureter. The stone was visualized, and using a 200-micron laser fiber, it was fragmented with first 0.6 and 6 hertz followed by 0.8 and 6 hertz. Once it was fragmented into approximately four pieces, these were extracted. The ureteroscope was then advanced up the ureter as far as it could. The Flex-X ureteroscope was then advanced up into the renal pelvis, and the renal pelvis was inspected and no further stones. This was removed. The scope was back loaded over the wire. The [place] was advanced to measure at 26 cm. The [place] was removed, and a 6-Haitian 26-cm ureteral stent was advanced over the wire. The wire was removed, the bladder was emptied, and the scope was removed. The patient was awakened and taken to the Recovery Room in stable condition. * Brief Op Note - Franc Burton MD - 12/03/2011 1:55 PM EDT Brief Operative Note Patient Name: Jenaro Flores : [id number] MR#: [id number] Case Date: 12/03/2011 Surgeon: Surgeon(s) and Role: * XANDER MCGILL JR, MD - Primary * FRANC BURTON MD Preoperative diagnosis: BLADDER STONES Postoperative diagnosis: BLADDER STONES Procedure(s): MODIFIER HOLMIUM LASER CYSTOURETEROSCOPY, LITHOTRIPSY Anesthesia: General Findings: Stone in the right distal ureter, not in the bladder Complications: None Fluids: see anesthesia record Estimated Blood Loss: 5 ml Drains: 6 fr 26 cm stent in right ureter Disposition: awakened from anesthesia, extubated and taken to the recovery room in a stable condition, having suffered no apparent untoward event. Condition: doing well without problems (Please see the Surgical Encounter Summary for any Implant and Specimen details pertinent to this patient.) * Miscellaneous - Provider, Scanning - 12/03/2011 11:56 AM EDT documented in this encounter Plan of Treatment Pending Results Name Type Priority Associated Diagnoses Date /Time XR Fluoro OR c-arm storage only Imaging Routine 12/03/2011 1:50 PM EDT Scheduled Orders Name Type Priority Associated Diagnoses Orde r Schedule XR Fluoro OR c-arm storage only Imaging Routine Once PRN (for Ra diant use) for 1 Occurrences starting 12/03/2011 until 12/03/2011 documented as of this encounter Procedures Procedure Name Priority Date/Time Associated Diagnosis Comments SURGICAL PATHOLOGY REPORT Routine 12/03/2011 5:52 PM EDT SPECIMEN TO PATHOLOGY Routine 12/03/2011 1:45 PM EDT CYSTOURETEROSCOPY, LITHOTRIPSY (WRVU 7.5) 12/03/2011 12:30 PM EDT BLADDER STONES MODIFIER HOLMIUM LASER 12/03/2011 12:30 PM EDT BLADDER STONES documented in this encounter Results * SURGICAL PATHOLOGY REPORT (12/03/2011 5:52 PM EDT) Surgical Pathology Report ? [facility] ? Provider: ?? XANDER MCGILL JR ?? Pt. Name: ?? SHABANA JEANRO Choi ? Acc #: ?[id number] ?Pt. ? Col Date: ?? 12/03/2011 ? /Sex: ?1950,(61 years),Male ? Rec Date: ?? 12/03/2011 ? LOC: ?[facility] ? SURGICAL PATHOLOGY ? ---Pathologic Diagnosis--- ? Calculi, right ureter (see Comment). ? CR-0 ? 12/09/11 ? BJM ? 12/09/11 Verified by: ? Lab Review, Limited Histology ? (Electronic Signature) ? The attending pathologist whose signature appears on this report has ? reviewed all diagnostic slides and has edited the gross and/or ? microscopic portion of the report in rendering the final pathologic ? diagnosis. ? ---Comment--- ? The Report of Stone Analysis, order # [id number], has been received from ? the [facility], [address], [place], [place] ??[address]. ? For the full text of the [facility] report please refer to Non-DH Documentation ? Pathology in the electronic medical record (eDH). ? ---Gross Description--- ? Specimen submitted for chemical analysis. ? ---Clinical Information--- ? Specimen Submitted: ? A - Right ureteral stone ? Clinical History/Diagnosis : ? Right ureteral stone KALEN CELAYA 12/03/2011 5:52 PM EDT Xander Mcgill Jr., MD PATHOLOGY/CYTOLOGY ORDERABLES Performing Organization Address City/[facility]/ZIP Co de Phone Number KALEN CELAYA * Specimen to Pathology (surgical or derm) (12/03/2011 1:45 PM EDT) AP Specimen 12/03/2011 1:45 PM EDT 12/03/2011 1:45 PM EDT Narrative KALEN DUBONIUM - 12/03/2011 1:45 PM EDT Specimen requisition ordered. ??Separate Pathology report to follow Xander Mcgill Jr., MD PATHOLOGY/CYTOLOGY ORDERABLES Performing Organization Address [facility] Co de Phone Number KALEN CELAYA documented in this encounter Visit Diagnoses Not on filedocumented in this encounter Active and Recently Administered Medications Times are shown in EDT. PRN Medication Order 12/01/2011 12/02/2011 12/03/2011 iohexol (OMNIPAQUE) injection (CANCELED) ONCE PRN, Starting on Tue12/03/11 at 1316, Until Tue12/03/11 at 1725, Per Protocol, Intra-Operative (Intra-Procedure), Routine 1316 (Given - Provid er: Franc Burton MD) documented in this encounter Care Teams Financial Analyst Intern Relationship Specialty Start Date End Date Andrew Sims MD PCP - General 06/30/10 05/17/17 documented as of this encounter
--- OUTSIDE RECORDS SUMMARY | 2024-09-11 01:20 | XMS_ITS | Encounter Summary ---
Author Organization [facility] Address [facility] [place] [address] Care Team Providers Care Electrical Engineer Mep Name Role Phone Andrew Sims MD Primary Care Provider Rajendra schultz Encounter Details Date Type Department Care Team (Latest Contact Info) Description 11/17/2011 10:59 AM EDT - 11/17/2011 1:06 PM EDT Hospital Encounter XRay at [address] [place] [address] Nephrolithiasis Social History Tobacco Use Types Packs/Day Years Used Date Smoking Tobacco: Former Sex and Gender Information Value Date Recorded Sex Assigned at Not on file Gender Identity Not on file Sexual Orientation Not on file documented as of this encounter Medications at Time of Discharge Medication Sig Dispensed Refills Start Date End Date levothyroxine (SYNTHROID) 100 mcg tabletIndications:CKD (chronic kidney disease) Take 100 mcg by mouth daily. multivitamin (THERAGRAN) tabletIndications:CKD (chronic kidney disease) Take 1 tablet by mouth daily. documented as of this encounter Plan of Treatment Not on file documented as of this encounter Procedures Procedure Name Priority Date/Time Associated Diagnosis Comments XR ABDOMEN 1 VIEW STAT 11/17/2011 11: 10 AM EDT Nephrolithiasis documented in this encounter Results * XR abdomen 1 view (11/17/2011 11:10 [...] skeletal structures appear osteopenic. Procedure Note Elsy Ugarte MD - 11/22/2011 AP VIEW OF THE [...] Film and interpretation reviewed by the attending Ravin Mcgill Jr., MD IMG DX ORDERABLES documented in this encounter Visit Diagnoses Diagnosis Nephrolithiasis Calculus of kidney documented in this encounter Care Teams Electrical Engineer Mep Relationship Specialty Start Date End Date Andrew Sims MD PCP - General 06/30/10 05/17/17 documented as of this encounter
--- OUTSIDE RECORDS SUMMARY | 2024-09-11 01:20 | XMS_ITS | Clinical Summary ---
Author Organization [facility] Address [address] [place] [address] Care Team Providers Care Receiving And Processing Supervisor Name Role Phone Unknown, Provider MD Primary Care Provider Unava ilable Social History [...] Orientation Not on file Plan of Treatment Health Maintenance Due Date Last Done Comments Hepatitis C Screen 1950 Fall Risk Screening 01/10/2016 COVID-19 Vaccine (2023- season) 2024 RSV Immunization ( o r 60+ Years) (1 - 1-dose 75+ series) 2026 Care Teams Receiving And Processing Supervisor Relationship Specialty Start Date End Date Unknown, Provider, PCP - General 08/31/17
--- OUTSIDE RECORDS SUMMARY | 2024-09-11 01:20 | XMS_ITS | Encounter Summary ---
Author Organization [facility] Address [facility] [place] [address] Care Team Providers Care Noodle Press Operator Name Role Phone Andrew Sism MD Primary Care Provider U frankyailtrevin Reason for Visit * Reason Comments Ureteral Stone Encounter Details Date Type Department Care Team (Latest Contact Info) Description 01/04/2012 4:00 PM EDT [place] [address] CLINIC, Ravin Lees Jr., MD [facility] [place] [address] [place] [address] Nephrolithiasis (Primary Dx) Discharge Disposition: Home Social [...] Pulse 58 01/04/2012 3:58 PM EDT Temperature - - Respiratory Rate 16 01/04/2012 3:58 PM EDT Oxygen Saturation - - Inhaled Oxygen Concentration - - Weight 79.8 kg (176 lb) 01/04/2012 3:58 PM EDT Height 172.7 cm (5' 8) 01/04/2012 3:58 PM EDT Body Mass Index 26.76 01/04/2012 3:58 PM EDT documented in this encounter Progress Notes * Ravin Mcgill Jr., MD - 01/04/2012 4:35 PM EDT Subjective: Patient ID: Jenaro Flores is a 61 y.o. male. HPI This pleasant 61 y.o. year old male underwent right ureteroscopy on 12/03/11. Intraoperative findings were notable for a distal right ureteral stone. He had an unremarkable postoperative course and had planned stent removal on 12/09/11. Since then, his urinary urgency and frequency have fully resolved. He denies new LUTS, hematuria, dysuria, flank pain or abdominal pain. He had his first episode in 2006. CT reportedly showed right hydronephrosis with perinephric and periureteral stranding; a 3mm calculus was seen in the right hemipelvis which most likely lies the distal right ureter. He was able to pass and retrieve the stone and took it to [facility]. He is not aware if a stone analysis was done. He was well until 05/18, when he again had an episode of severe pain. He did not go to the ED; the pain lasted about 2-3 hours before subsiding. In 06/18, again he had pain that lasted a whole afternoon. In 07/18, he experienced another episode of pain for which he tookpain medication and felt better in 3-4 hours. He does not think he passed a stone on each of these three episodes. He made an appointment to see Dr. Sims after the 06/18 episode. He had bloodwork, revealing a serum creatinine of 1.5 mg/dl. [...] mm cyst in the right upper pole. Late October 2011, he had a brief episode of right flank pain, 3/10 in severity, radiated anteriorly, present for a week, then resolved. He denied associated nausea, vomiting, gross hematuria, fever, or chills. Past Medical History: Hypothyroidism Nephrolithiasis Past Surgical History: Appendectomy, in his 30s Family History: No known family h/o urolithiasis. Father at age 76 of ? Cancer or heart disease. Mother is 84 years old; she had a lumpectomy for breast cancer. 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 with two children, a son and daughter. He smoked for 3-4 years when in , stopping in 1972. Review of Systems As above, otherwise unchanged since last visit Objective: Physical Exam Vitals reviewed. Constitutional: He is oriented to person, place, and time. He appears well- developed and well-nourished. No distress. HENT: Head: Normocephalic and atraumatic. Cardiovascular: Normal rate. Pulmonary/Chest: No respiratory distress. Abdominal: Soft. He exhibits no distension and [...] I independently reviewed the renal ultrasound from today. This reveals no evidenceof hydronephrosis, hydroureter, or residual right sided stones. Stable bilateral renal cysts noted.Possible left upper pole 3mm stone noted. Stone analysis: 100% CaOxMonohydrate Assessment and Plan: Impression/Plan: Doing well s/p right ureteroscopy. No residual stone or hydronephrosis. We briefly reviewed dietary modifications for those with stones, but are awaiting 24 h urine results which will be sent to Dr Stanton. We discussed followup options; he would prefer to simply followup on an as-needed basis. documented in this encounter Plan of Treatment Not on file documented as of this encounter Visit Diagnoses Diagnosis Nephrolithiasis- Primary Calculus of kidney documented in this encounter Care Teams Noodle Press Operator Relationship Specialty Start Date End Date Andrew Sims MD PCP - General 06/30/10 05/17/17 documented as of this encounter
--- OUTSIDE RECORDS SUMMARY | 2024-09-11 01:20 | XMS_ITS | Encounter Summary ---
Author Organization [facility], [facility]1983 Address [facility] [place] [address] Care Team Providers Care Digital Print Operator Name Role Phone Andrew Sims MD Primary Care Provider Rajendra schultz Encounter Details Date Type Department Care Team (Late st Contact Info) Description 12/03/2011 12:30 PM EDT - 12/03/2011 1:45 PM EDT Surgery [place] [address] Xander Mcgill Jr., MD [facility] [place] [address] MODIFIER HOLMIUM LASER Social History Tobacco Use Types Packs/Day Years [...] Sign Reading Time Taken Comments Blood Pressure 123/76 12/03/2011 11:07 AM EDT Pulse 72 12/03/2011 11:07 AM EDT Temperature 36.1 ??C (97 ??F) 12/03/2011 11:07 AM EDT Respiratory Rate 18 12/03/2011 11:07 AM EDT Oxygen Saturation 97% 12/03/2011 11:07 AM EDT Inhaled Oxygen Concentration - - Weight [...] 5pm or on a weekend: Call the [facility] binding machine operator and ask for the doctor occasional babysitter covering for Dr Mcgill. * Patient Instructions* [...] to urinate please call our office at [phone] 5PM or [phone] after hours. Kidney Stone Patients: Try and [...] side pain, you should call our office [phone] before 5PM or [phone] afterhours. Call Doctor for: Please call if you have copious blood in your urine, severe back or side pain, pain not controlled by pain medications, persistent nausea and vomiting, or for any fevers greater [id number] F. The number for questions is [phone] before 5 PM weekdays and [phone] after 5 PM and weekends. Pain Medication: [...] Burton MD - 12/03/2011 2:18 PM EDT [facility] Operative Note Patient Name: Jenaro Flores : [id number] MR#: [id number] Case Date: 12/03/2011 Surgeon: Surgeon(s) and Role: [...] was back loaded over the wire. The [place] was advanced to measure at 26 cm. The [place] was removed, and a 6-Zambian 26-cm ureteral stent was advanced over the wire. The wire was removed, the bladder was emptied, and the scope was removed. The patient was awakened and taken to the Recovery Room in stable condition. * Brief Op Note - Franc Burton MD - 12/03/2011 1:55 PM EDT Brief Operative Note Patient Name: Jenaro Flores : [id number] MR#: [id number] Case Date: 12/03/2011 Surgeon: Surgeon(s) and Role: [...] 5:52 PM EDT) Surgical Pathology Report ? [facility] ? Provider: ?? XANDER MCGILL JR ?? Pt. Name: ?? SHABANAJENARO ? Acc #: ?[id number] ?Pt. ? Col Date: ?? 12/03/2011 ? [...] The Report of Stone Analysis, order # [id number], has been received from ? the [facility], [address], [place], [place] ??[address]. ? For the full text of the [place] report please refer to Non-DH Documentation ? Pathology in the electronic medical record (eDH). ? ---Gross Description--- ? Specimen submitted for chemical analysis. ? ---Clinical Information--- ? Specimen Submitted: ? A - Right ureteral stone ? Clinical History/Diagnosis : ? Right ureteral stone KALEN CELAYA 12/03/2011 5:52 PM EDT Xander Mcgill Jr., MD PATHOLOGY/CYTOLOGY ORDERABLES Performing Organization Address City/[facility]/ZIP Co de Phone Number KALEN CELAYA * Specimen to Pathology (surgical or derm) (12/03/2011 1:45 PM EDT) AP Specimen 12/03/2011 1:45 PM EDT 12/03/2011 1:45 PM EDT Narrative KALEN DUBONIUM - 12/03/2011 1:45 PM EDT Specimen requisition ordered. ??Separate Pathology report to follow Xander Mcgill Jr., MD PATHOLOGY/CYTOLOGY ORDERABLES Performing Organization Address [facility] Co de Phone Number KALEN CELAYA documented in this encounter Visit Diagnoses Not on filedocumented in this encounter Administered Medications Inactive Administered Medications - up to 3 most recent administrations Medication Order MAR Action Action Date Dose Rate Site iohexol (OMNIPAQUE) injection ONCE PRN, Starting on Tue12/03/11 at 1316, Until Tue12/03/11 at 1725, Per Protocol, Intra-Operative (Intra-Procedure), Routine Given 12/03/2011 1:16 PM EDT 50 mLs 19- Surgical Site documented in this encounter Active and Recently Administered Medications Times are shown in EDT. PRN Medication Order 12/01/2011 12/02/2011 12/03/2011 iohexol (OMNIPAQUE) injection (CANCELED) ONCE PRN, Starting on Tue12/03/11 at 1316, Until Tue12/03/11 at 1725, Per Protocol, Intra-Operative (Intra-Procedure), Routine 1316 (Given - Provid er: Franc Burton MD) documented in this encounter Care Teams Digital Print Operator Relationship Specialty Start Date End Date Andrew Sims MD PCP - General 06/30/10 05/17/17 documented as of this encounter
--- OUTSIDE RECORDS SUMMARY | 2024-09-11 01:20 | XMS_ITS | Encounter Summary ---
Author Organization [facility] Address [facility] [place] [address] Care Team Providers Care Die Attacher Name Role Phone Andrew Zarate MD Primary Care Provider Rajendra schultz Encounter Details Date Type Department Care Team (Late st Contact Info) Description 11/17/2011 9:30 AM EDT Follow-Up [address] [address] Efren Stanton MD Nephrolithiasis (Primary Dx) Discharge Disposition: Home Social History Tobacco Use Types Packs/Day Years Used Date Smoking Tobacco: Former Sex and Gender Information Value Date Recorded Sex Assigned at Not on file Gender Identity Not on file Sexual Orientation Not on file documented as of this encounter Patient Instructions * Patient Instructions* Efren Stanton MD - 11/17/2011 10:10 AM EDT We will check kidney function with a blood test today. You will see Dr. Mcgill, who may schedule an imaging study. Increase water/fluid intake to exceed 3 liters per day, in order to pass in excess of 2.5 liters urine. Repeat 24 hour urine in 4-6 weeks. documented in this encounter Progress Notes * Efren Stanton MD - 11/17/2011 10:00 AM EDT Nephrology/Hypertension Clinic Follow-up Note [id number] ID: 61 y.o.year-old male for follow up of nephrolithiasis and chronic kidney disease. Past Medical History: Nephrolithiasis Hypothyroidism Current outpatient prescriptions ordered prior to encounter Medication Sig Dispense Refill ??? levothyroxine (SYNTHROID) 100 mcg tablet Take 100 mcg by mouth daily. ??? multivitamin (THERAGRAN) tablet Take 1 tablet by mouth daily. S: He has generally felt since the last visit. He did have low back and flank pain on the right, which lasted for about one week. He did not have any nausea or vomiting; he also had no urinary symptoms such as hematuria. No fever or chills. He collected 2 24 hour urines through [facility] (10/09, 10/11/11). ROS: System Abnormalities Constitutional He has generally felt well Eye Vision stable ENT Teeth ok CV No chest pain, palpitations Resp No shortness of breath GI No N/V Some back and right pain; steady for a week or so Skin No rash Allergy Endocrine Neurologic Musculoskeletal See abovek back pain Lymph No enlarged glands Psych Y N All other systems reviewed and negative. x O: BP 140/84, P 69. Weight 176 lbs General: WDWN man in no distress Eye: EOMs intact ENT: Oropharynx benign Neck: No JVD CV: RRR. S1, S2 normal Resp: Lungs clear Abd: Soft, non-tender Back: No CVA tenderness Lymph: No cervical or submandibular adenopathy Skin: No rash Ext: No pretibial edema Neuro: FISHER. Gait normal Labs: Recent Results (from the past 24 hour(s)) BASIC METABOLIC PANEL (NON-FASTING) Component Value Range ??? Glucose Lvl 93 60 - 199 (mg/dL) ??? BUN 16 10 - 20 (mg/dL) ??? Creatinine 1.25 0.80 - 1.50 (mg/dL) ??? Sodium 141 135 - 145 (mmol/L) ??? Potassium 4.2 3.5 - 5.0 (mmol/L) ??? Chloride 106 98 - 107 (mmol/L) ??? CO2 27 22 - 31 (mmol/L) ??? Anion Gap 8 5 - 15 (mmol/L) ??? Calcium 9.4 8.5 - 10.5 (mg/dL) ? ? Estimated GFR 59 (*) >=60 Two 24 hour urines ([facility], scanned into eDH), average of two: Volume 1.3 liters, calcium 137, oxalate 33, citrate 522, uric acid 735 mg; pH 6.23; sodium 112 mmol. SS CaOx 7.39, SS CaP 1.43, SS UA0.9 Assessment: 1. Nephrolithiasis, with major risk factor inadequate water/fluid intake .2. Possible chronic kidney disease, GFR has improved since last visit, now near 60 ml/min. He had albuminuria last visit. Recommendations: 1. Increase water/fluid intake to exceed three liters per day. Normal calcium intake is adequate with avoidance of high protein and sodium intake. 2. To see Dr. Mcgill today. 3. Imaging per Dr. Mcgill 4. Repeat 24 hour urine ([facility]) in 4-6 weeks. I will call him when I receive the results. 5. Return in 6 months. Repeat urine ACR at that time. CC: ANDREW ZARATE MD [address] [facility] [id number] documented in this encounter Plan of Treatment Not on file documented as of this encounter Procedures Procedure Name Priority Date/Time Associated Diagnosis Comments BASIC METABOLIC PANEL Routine 11/17/2011 10:11 AM EDT Nephrolithiasis documented in this encounter Results * (ABNORMAL) Basic Metabolic Panel (non-fasting) (11/17/2011 10:11 AM EDT) Glucose 93 60 - 199 mg/dL CERNER MILLENNIUM Comment:Diabetes: >=200 mg/d L plus symptoms Blood Urea Nitrogen 16 10 - 20 mg/dL CERNER MILLENNIUM Creatinine 1.25 0.80 - 1.50 mg/dL CERNER MILLENNIUM Sodium 141 135 - 145 mmol/L CERNER MILLENNIUM Potassium 4.2 3.5 - 5.0 mmol/L CERNER MILLENNIUM Comment: Please note: ??Patients with WBC >100,000 may have falsely elevated Potassium levels. ??For accurate Potassium quantification in these patients send serum separator tube (gold top) for subsequent determinations. ??Contact the Clinical Chemistry Laboratory if there are any questions. Chloride 106 98 - 107 mmol/L CERNER MILLENNIUM Carbon Dioxide 27 22 - 31 mmol/L CERNER MILLENNIUM Anion Gap 8 5 - 15 mmol/L CERNER MILLENNIUM Calcium 9.4 8.5 - 10.5 mg/dL CERNER MILLENNIUM Est Glomerular Filtration Rate 59(L) >=60 CERNER MILLENNIUM Comment: The National Kidney Disease Education Program (NKDEP) has recommended all laboratories report estimated GFR (eGFR) along with plasma creatinine measurements to assist you with recognition of early kidney disease. Caveats: ??Plasma creatinine should be at steady-state (unchanged within the past week). For patients multiply eGFR by 1.2. The MDRD equation was developed using patients between the ages of 18 and 70 years. ?? The MDRD equation has not been validated for patients < 18 years of age and should not be used to assess renal function in the pediatric population. ??The MDRD eGFR equation will also overestimate the true GFR of patients above the age of 70. ??This overestimation is variable but increases with age. At present, NKDEP does NOT recommend using [...] with diabetic kidney disease. References: http://nkdep.nih.gov/resources/NKDEP_Suggestn4Labs_0606_508.pdf http://www.kidney.org/professionals/kls/pdf/faq_gfr.pdf Lisa K, Mary Beth NA, Dao AK, Andrew TS, Yovany AD, Maurice MATTHEW. Relative performance of the MDRD and CKD-EPI equations for estimating glomerular filtration rate among patients with varied clinical presentations. Clin J Am Soc Nephrol;6:1963-72. Blood specimen (specimen) 11/17/2011 10:11 AM EDT 11/17/2011 10:21 AM EDT Narrative Resulting Agency Comment Spec In Lab Efren Stanton MD CHEMISTRY ORDERAB LES Performing Organization Address City/State/[facility] Co de Phone Number [facility] documented in this encounter Visit Diagnoses Diagnosis Nephrolithiasis- Primary Calculus of kidney documented in this encounter Care Teams Die Attacher Relationship Specialty Start Date End Date Andrew Zarate MD PCP - General 06/30/10 05/17/17 documented as of this encounter
--- OUTSIDE RECORDS SUMMARY | 2024-09-11 01:20 | XMS_ITS | Encounter Summary ---
Author Organization [facility] Address [address] [place] [address] Care Team Providers Care Supervising Floorperson Name Role Phone Unknown, Provider Primary Care Provider Unava ilable Encounter Details Date Type Department Care Team (Late st Contact Info) Description 07/06/2023 Lab Requisition [facility] Pathology & Laboratory Medicine - [facility] [address], [place] [id number] Outr Resulting Lab, Provider Social History Tobacco Use Types Packs/Day Years [...] Procedure Name Priority Date/Time Associated Diagnosis Comments PSA TOTAL, DIAGNOSTIC Routine 07/06/2023 7:30 EST documented in this encounter Results * PSA TOTAL, DIAGNOSTIC (07/06/2023 7:30 EST) PSA 0.7 <=6.5 ng/mL 07/06/2023 18:[address] [facility] Blood VENOUS BLOOD / Unknown 07/06/2023 7:30 EST 07/06/2023 17:28 EST Narrative [facility] - 07/06/2023 18:39 EST NOTE: Serum PSA concentration should not be interpreted as absolute evidence for the presence or absence of malignant disease. Assayed on Cover L[employer]creen [employer] XPT using chemiluminescent technology.??Values obtained by using different assay methods cannot be used interchangeably. us Provider Outr Resulting Lab CHEMISTRY & BLOOD GA S ORDERABLES Final Result [facility] [address] [place] [address] documented in this encounter Visit Diagnoses Not on filedocumented in this encounter Care Teams Supervising Floorperson Relationship Specialty Start Date End Date Unknown, Provider, PCP - General 08/31/17 documented as of this encounter
--- OUTSIDE RECORDS SUMMARY | 2024-09-11 01:20 | XMS_ITS | Encounter Summary ---
Author Organization [facility] Address [facility] [address] Care Team Providers Care Maintenance Tech Name Role Phone Andrew Sims MD Primary Care Provider U frankyailable Reason for Visit * Reason Comments Ureteral Stone Encounter Details Date Type Department Care Team (Latest Contact Info) Description 12/10/2011 10:30 AM EDT Procedure [place] [address] Xander Mcgill Jr., MD [facility] [place] [address] Nephrolithiasis (Primary Dx); Bladder stone Discharge Disposition: Home Social History Tobacco Use [...] Sign Reading Time Taken Comments Blood Pressure 146/79 12/10/2011 10:12 AM EDT Pulse 77 12/10/2011 10:12 AM EDT Temperature - - Respiratory Rate - - Oxygen Saturation - - Inhaled Oxygen Concentration - - Weight 79.8 kg (176 lb) 12/10/2011 10:12 AM EDT Height 172.7 cm (5' 8) 12/10/2011 10:12 AM EDT Body Mass Index 26.76 12/10/2011 10:12 AM EDT documented in this encounter Patient Instructions * Patient Instructions* Xander Mcgill Jr., MD - 12/10/2011 10:42 AM EDT Stone analysis: 100% Calcium oxalate monohydrate Dietary Information for Stone Prevention Stone formation is due to an interaction of genetic and environmental factors in the majority of cases. Diet is a antoine environmental factor which can be modified to reduce stone formation. A simple dietary approach which is beneficial for the majority of kidney stone patients is reviewed in this handout. Urine needs to be supersaturated with the chemicals that compose the stones for them to develop. This means that there is a high concentration of these chemicals present. When this occurs, the respective chemicals crystallize, clump together (aggregate) and a stone eventually develops. This can be due to excessive excretion of these chemicals in urine and/or dehydration. This is a simplified description of this process which is actually quite complex and modulated by a number of other factors. FLUIDS Consuming an adequate amount of fluid is a simple and safe method of decreasing urinary supersaturation. Tap water is an excellent and readily available fluid for this purpose. However, other fluids may be utilized. The goal for adult patients is to consume enough fluid for a daily urine output of 2 or 3 liters. Drinking 8-10 ounces of water per hour while awake will usually allow this to occur. Another index ofadequate hydration is that urine should be almost as light as water. ANIMAL PROTEIN The consumption of large amounts of animal protein produces a number of changes in the urinary environment which may promote stone formation including lower pH, increased excretion of calcium, oxalate and uric acid, and reduced excretion of citrate. Therefore, limiting consumption of animal protein, especially red meat, is advisable. The Libertad???s diet should be avoided as it is based on high prot ein intake which will promote all of the aforementioned urinary changes. A daily protein intake of 1 gram per kilogram of body weight (1 kilogram = 2.2 pounds) is recommended. Salt (Sodium) High salt consumption should be avoided as it promotes a number of deleterious urinary changes for stone patients including an increase in urinary calcium and cystine excretion, and a reduction in citrate excretion. Sodium intake should be limited to 2 grams per day for adults. Dairy Products The majority of kidney stones are composed of calcium, and a combination of oxalate or phosphate, or both. Dietary calcium restriction was recommended for a number of years. However, there is now ample evidence that this should not be undertaken. Most adults should eat enough dairy products or other calcium containing foods which in total provides 1 to 1.2 grams of calcium per day. An effort should be made to equally distribute calcium intake throughout ones daily meals. High Oxalate Containing Foods Calcium oxalate stone formers should avoid eating foods containing high amounts of oxalate. Examples of such foods include spinach, parsley, rhubarb, cranberries, celery, peanuts, soy products, fibercontaining cereals, bran, and chocolate. Vitamin Supplements Stone patients should avoid consuming excessive amounts of vitamin C (ascorbate/ascorbic acid). Theamount of vitamin C present in the standard multi- vitamin table is not excessive and thus these canbe taken. However, other preparations containing greater amounts of this vitamin should not be taken as this may increase urinary oxalate excretion. Calcium supplements such as Tums and Citracel may promote increased calcium excretion when consumed. Thus, one should let their urologist know if theyare taking such preparations so that special urine testing can be done to determine whether continues utilization is advisable. Instructions following Cystoscopy Activity: As tolerated by your comfort level. Fluids: You should increase your water today. Avoid coffee, tea and cola. You do not need to vsutnq23 ounces of water today. Urination: You will likely have a small amount of blood in your urine for the next several days. This is normal; however, if you are passing large amounts of blood clots or are unable to void please call our office at [phone] before 5PM or [phone] after hours. Please call if: * you have copious blood in your urine * fevers greater than 101.3 F * you are unable to void The number for questions is [phone] before 5 PM weekdays and [phone] after 5 PM and weekends. Follow-up: In late December for your next office visit with Dr. Mcgill. You are going to have a Renal Ultrasound prior to this visit. documented in this encounter Procedure Notes * Xander Mcgill Jr., MD - 12/10/2011 11:14 AM EDTAssociated Order(s): CYSTO, STENT REMOVAL Pre-Procedure Diagnose(s): Bladder stone Jenaro Flores returns for right ureteral stent removal after undergoing right ureteroscopy. This pleasant 61 y.o. year old male underwent right ureteroscopy on 12/03/11. Intraoperative findings were notable for a distal right ureteral stone. He had an unremarkable postoperative course and presents today for planned stent removal. We discussed the procedure, risks and planned benefit. We discussed the need to remove the stent asthey cannot stay in indefinitely, as well as the risk of possible need for stent or nephrostomy replacement if there was any residual or future ureteral obstruction. Informed consent was obtained. Jenaro Flores was taken to the cystoscopy room and prepped and draped by our urology nurse. Prophylactic antibiotic administration was confirmed. Topical viscous lidocaine gel was applied to the urethra for local anesthetic. A timeout was performed. Flexible cystoscopy was performed. The urethra was without abnormality. The bladder was entered and inspected. No focal mucosal abnormality was seen. The stent was seen emanating from the right ureteral orifice. It was grasped and extracted. It wasinspected and found to be intact. He tolerated the procedure well. I instructed Jenaro Flores of the need to return in approximately 4 weeks for renal ultrasound to ensure that there is no residual hydronephrosis. I cautioned him to contact us immediately with increasing pain, fever, or chills as this could suggest obstruction and may need to be further evaluatedon an urgent or emergent basis. I have asked him to call with any additional questions. Stone analysis: 100% CaOxMonohydrate documented in this encounter Plan of Treatment Not on file documented as of this encounter Procedures Procedure Name Priority Date/Time Associated Diagnosis Comments CYSTO, STENT REMOVAL Routine 12/10/2011 11:15 AM EDT Bladder stone documented in this encounter Results * US retroperitoneal complete (01/04/2012 3:07 PM EDT) Anatomical Region Laterality Modality Abdomen Ultrasound 01/04/2012 3:07 PM EDT Narrative 01/04/2012 3:21 PM EDT ? Renal ? (Signed Final 01/04/2012 03:20 pm) Patient Info ID: ? [id number] ? : ??[birth year] (61 yrs) Name: ? JENARO Steph ROUSSEAUE ?Visit Date: 01/04/2012 03:02 pm Performed By Performed By: ?Daisy Byrd [facility] Attending: ? Paulina GODFREY, Kenya Elam Referred By: ? XANDER MCGILL MD Service(s) Provided URETRO - Retroperitoneal Complete - [id number] ? [id number] Indications History of kidney stones, Assess for [...] Final 01/04/2012 03:20 pm) Patient Info ID: [id number] : [birth year] (61 yrs) Name: JENARO FLORES Visit Date: 01/04/2012 03:02 pm Performed By Performed By: Daisy Byrd [facility] Attending: Kenya Gallardo MD Referred By: XANDER MCGILL MD Service(s) Provided URETRO - Retroperitoneal Complete - [id number] Indications History of kidney stones, Assess for [...] 01/04/2012 03:20 pm Xander Mcgill Jr., MD IM US GEN ORDERAB LES * Cysto, Stent Removal, clinic (12/10/2011 11:15 AM EDT) Narrative Xander Mcgill Jr., MD - 12/10/2011 11:15 AM EDT Jenaro Flores returns for right ureteral stent removal after undergoing right ureteroscopy. This pleasant ??61 y.o. year old male underwent right ureteroscopy on 12/03/11. ??Intraoperative findings were notable for a distal right ureteral stone. ??He had an unremarkable postoperative course and presents today for planned stent removal. We discussed the procedure, risks and planned benefit. We discussed the need to remove the stent as they cannot stay in indefinitely, as well as the risk of possible need for stent or nephrostomy replacement if there was any residual or future ureteral obstruction. Informed consent was obtained. Jenaro Flores was taken to the cystoscopy room and prepped and draped by our urology nurse. ??Prophylactic antibiotic administration was confirmed. ?? Topical viscous lidocaine gel was applied to the urethra for local anesthetic. A timeout was performed. ??Flexible cystoscopy was performed. ?? The urethra was without abnormality. ??The bladder was entered and inspected. ??No focal mucosal abnormality was seen. ??The stent was seen emanating from the right ureteral orifice. ??It was grasped and extracted. ?? It was inspected and found to be intact. ??He tolerated the procedure well. I instructed ??Jenaro Flores ??of the need to return in approximately 4 weeks for renal ultrasound to ensure that there is no residual hydronephrosis. ??I cautioned him to contact us immediately with increasing pain, fever, or chills as this could suggest obstruction and may need to be further evaluated on an urgent or emergent basis. ??I have asked him to call with any additional questions. Stone analysis: 100% CaOxMonohydrate Procedure Note Xander Mcgill Jr., MD - 12/10/2011 11:14 AM EDT Jenaro Flores returns for right ureteral stent removal after undergoingright ureteroscopy. This pleasant 61 y.o. year old male underwent right ureteroscopy on12/03/11. Intraoperative findings were notable for a distal right ureteralstone. He had an unremarkable postoperative course and presents today forplanned stent removal. We discussed the procedure, risks and planned benefit. We discussed theneed to remove the stent as they cannot stay in indefinitely, as well asthe risk of possible need for stent or nephrostomy replacement if therewas any residual or future ureteral obstruction. Informed consent wasobtained. Jenaro Flores was taken to the cystoscopy room and prepped and draped byour urology nurse. Prophylactic antibiotic administration was confirmed.Topical viscous lidocaine gel was applied to the urethra for localanesthetic. A timeout was performed. Flexible cystoscopy was performed.The urethra was without abnormality. The bladder was entered andinspected. No focal mucosal abnormality was seen. The stent was seenemanating from the right ureteral orifice. It was grasped and extracted.It was inspected and found to be intact. He tolerated the procedure well. I instructed Jenaro Flores of the need to return in approximately 4weeks for renal ultrasound to ensure that there is no residualhydronephrosis. I cautioned him to contact us immediately with increasingpain, fever, or chills as this could suggest obstruction and may need yoshi further evaluated on an urgent or emergent basis. I have asked him tocall with any additional questions. Stone analysis: 100% CaOxMonohydrate Xander Mcgill Jr., MD URO PROCEDURE W RF L ORDERABLES documented in this encounter Visit Diagnoses Diagnosis Nephrolithiasis- Primary Calculus of kidney Bladder stone Other calculus in bladder Nephrolithiasis Calculus of kidney documented in this encounter Care Teams Maintenance Tech Relationship Specialty Start Date End Date Andrew Sims MD PCP - General 06/30/10 05/17/17 documented as of this encounter
--- OUTSIDE RECORDS SUMMARY | 2024-09-11 01:20 | XMS_ITS | Encounter Summary ---
Author Organization [facility] Address [facility] [place] [address] Care Team Providers Care Cryptoanalysis Teacher Name Role Phone Andrew Sims MD Primary Care Provider U antoine Encounter Details Date Type Department Care Team (Late st Contact Info) Description 12/09/2011 External Results Medical Records [facility] [place] [id number] Provider, Scanning Social History Tobacco Use Types Packs/Day Years [...] Priority Date/Time Associated Diagnosis Comments SURGICAL PATHOLOGY SCAN Routine 12/03/2011 documented in this encounter Results * Scan Doc: Surgical Pathology (12/03/2011) 12/03/2011 Ravin Mcgill Jr., MD MEDIA MGR SCAN EXT ORDR/RSLT documented in this encounter Visit Diagnoses Not on filedocumented in this encounter Care Teams Cryptoanalysis Teacher Relationship Specialty Start Date End Date Andrew Sims MD PCP - General 06/30/10 05/17/17 documented as of this encounter
--- OUTSIDE RECORDS SUMMARY | 2024-09-11 01:20 | XMS_ITS | Encounter Summary ---
Author Organization [facility] Address [facility] [place] [address] Care Team Providers Care Shipping Associate Name Role Phone Andrew Sims MD Primary Care Provider Rajendra schultz Encounter Details Date Type Department Care Team (Latest Contact Info) Description 11/17/2011 1:06 PM EDT - 11/17/2011 11:59 PM EDT Hospital En[place] [address] CLINIC, Xander Lees Jr., MD [facility] [place] [address] Nephrolithiasis Discharge Disposition: Home Social History Tobacco [...] Date/Time Associated Diagnosis Comments US RETROPERITONEAL COMPLETE STAT 11/17/2011 1:52 PM EDT Nephrolithiasis documented in this encounter Results * US retroperitoneal complete (11/17/2011 1:52 PM EDT) Anatomical Region Laterality Modality Abdomen Ultrasound 11/17/2011 1:52 PM EDT Narrative 11/17/2011 2:11 PM EDT ? Renal ? (Signed Final 11/17/2011 02:10 pm) Patient Info ID: ? [id number] ? : ??[birth year] (61 yrs) Name: ? JENARO FLORES ?Visit Date: 11/17/2011 01:49 pm Performed By Performed By: ?Bijal Jha RDMS Attending: ? Bert Walls MD Referred By: ? XANDER MCGILL MD Service(s) Provided URETRO - Retroperitoneal Complete - [id number] ? [id number] Indications Hx of kidney stones Right Kidney [...] Final 11/17/2011 02:10 pm) Patient Info ID: [id number] : [birth year] (61 yrs) Name: JENARO FLORES Visit Date: 11/17/2011 01:49 pm Performed By Performed By: Bijal Jha RDMS Attending: Bert Walls MD. Referred By: XANDER MCGILL MD Service(s) Provided URETRO - Retroperitoneal Complete - [id number] Indications Hx of kidney stones Right Kidney [...] Jr., MD IMG US GEN ORDERAB LES documented in this encounter Visit Diagnoses Diagnosis Nephrolithiasis Calculus of kidney documented in this encounter Care Teams Shipping Associate Relationship Specialty Start Date End Date Andrew Sims MD PCP - General 06/30/10 05/17/17 documented as of this encounter
--- OUTSIDE RECORDS SUMMARY | 2024-09-11 01:20 | XMS_ITS | Encounter Summary ---
Author Organization [facility] [place] [address] Care Team Providers Care Bed And Breakfast Operator Name Role Phone Andrew Sims MD Primary Care Provider Rajendra wilkinsviviane Encounter Details Date Type Department Care Team (Late st Contact Info) Description 12/03/2011 12:32 PM EDT Anesthesia Event [facility] [place] [id number] Shani Soto MD [place], John W, MD Anesthesia Record Procedure Summary Procedure Name Responsible Anesthesiologist Anesthesia Start Time Anesthesia Stop Time MODIFIER HOLMIUM LASER (Bladder) Shani Soto MD 12/03/11 1232 12/03/11 1356 Events Date Time Event Comment 12/03/2011 1232 Start 1356 Stop 1411 Meds * Agents No agents on file. * Blood No blood administrations on file. Lines, Drains, and Airways Type Details Placement Removal (RETIRED) Peripheral IV Line - Single Lumen 12/03/11; 1131; 12/03/11; 1455 12/03/11 1131 by Gayle Doan RN 12/03/11 1455 by Lori Myers, RN documented in this encounter Social History Tobacco Use Types Packs/Day Years [...] on file documented as of this encounter OR Notes * Anesthesia Postprocedure Evaluation - Shani Soto MD - 12/03/2011 2:11 PM EDT Patient: Jenaro Flores Procedure(s) Performed: Procedure(s): MODIFIER HOLMIUM LASER CYSTOURETEROSCOPY, LITHOTRIPSY Patient location: PACU Post-op pain: Adequate analgesia Post-op nausea: no nausea or vomiting Last Vitals: Filed Vitals: 12/03/11 1354 BP: 103/58 Pulse: 65 Temp: 36.5 ??C (97.7 ??F) Resp: 16 Post-op cardiovascular and respiratory status: is stable Level of consciousness: awake and alert Complications: no apparent complications and tolerated the procedure well Fluid Status: normal * Anesthesia Preprocedure Evaluation - Shani Soto MD - 12/02/2011 4:03 PM EDT Anesthesia Evaluation Patient summary reviewed Airway Mallampati: II TM distance: >3 FB Neck ROM: full Dental - normal exam Pulmonary - normal exam Cardiovascular - negative ROS and normal exam Neuro/Psych - negative ROS GI/Hepatic/Renal Endo/Other - negative ROS Abdominal - normal exam Other findings: Patient Active Problem List: Nephrolithiasis (592.0L) Bladder stone (594.1C) hypothyroidism Anesthesia Plan ASA 2 General with intravenous induction Anesthetic plan and risks discussed with patient. Plan discussed with PICKLING TANK OPERATOR. documented in this encounter Miscellaneous Notes * Addendum Note - Gita Boyle - 12/06/2011 12:21 PM EDT Addendum created 12/06/11 1221 by Gita Boyle Modules edited:Anesthesia Events, Anesthesia Responsible Staff documented in this encounter Plan of Treatment Not on file documented as of this encounter Visit Diagnoses Not on filedocumented in this encounter Care Teams Bed And Breakfast Operator Relationship Specialty Start Date End Date Andrew Sims MD PCP - General 06/30/10 05/17/17 documented as of this encounter
--- OUTSIDE RECORDS SUMMARY | 2024-09-11 01:20 | XMS_ITS | Encounter Summary ---
Author Organization [facility] Address [address] [place] [address] Care Team Providers Care Kitchen Hand Name Role Phone Unknown, Provider Primary Care Provider Unava ilable Encounter Details Date Type Department Care Team (Latest Contact Info) Description 08/31/2017 10:32 EST - 08/31/2017 23:59 EST Hospital Encounter [address] [address] Unknown, ProviderMD Discharge Disposition: Home or Self Care Social History Tobacco Use Types Packs/Day Years Used Date Smoking Tobacco: Never Assessed Sex and Gender Information Value Date Recorded Sex Assigned at Not on file Legal Sex Male 20:52 EST Gender Identity Not on file Sexual Orientation Not on file documented as of this encounter Discharge Disposition Disposition Code Departure Means Destination Home or Self Group Home documented in this encounter Plan of Treatment Not on file documented as of this encounter Visit Diagnoses Not on filedocumented in this encounter Care Teams Kitchen Hand Relationship Specialty Start Date End Date Unknown, ProviderMD PCP - General 08/31/17 documented as of this encounter
[2024-09-11 10:34] LABS: Anion Gap 4.4 mmol/L (3-11); BUN 20 mg/dL (7-18); CO2 30.6 mmol/L (21.0-32.0); CREATININE 1.7 mg/dL (0.70-1.30); Calcium 9.4 mg/dL (8.5-10.1); Chloride 103 mmol/L (98-107); Estimated GFR 42.04 (mL/min/1.73m2); Glucose 113 mg/dL (74-106); Potassium 4.3 mmol/L (3.5-5.1); Sodium 138 mmol/L (136-145)
[2024-09-11 18:48] LABS: PSA, Screening 0.6 ng/mL (<=6.5)
== END 2024-09-11 01:08 | disposition home or self-care (01) ==
PROVIDERS: PCP Nurse Practitioner; Referring Provider Nurse Practitioner; Visit Provider Nurse Practitioner
DX: R79.9 Abnormal finding of blood chemistry, unspecified (principal); Z12.5 Encounter for screening for malignant neoplasm of prostate
CPT/HCPCS: 36415; 80048; 84153